=== PATIENT | female | born 1945 | race Caucasian/White ===

== ENCOUNTER → 2017-07-10 09:22 | Outpatient (CLI) | payer MEDICARE, SELFPAY ==
--- NOTE | 2017-07-10 09:28 | XR_ITS ---
XR shoulder RT min 2V HISTORY: ITS.REASON: RT SHOULDER PAIN ORDERING PHYSICIAN: Olivier Lara MD PATIENT AGE: 71 years COMPARISON: None FINDINGS: No fracture or dislocation. No lytic or blastic change. There is normal mineralization. The joint spaces are well-preserved. No significant degenerative/arthritic changes. No erosive changes evident. There is minimal cortical irregularity of the greater tuberosity which may be seen with rotator cuff disease. Otherwise negative. IMPRESSION: Minimal cortical irregularity of the greater tuberosity which may be seen with rotator cuff disease. Otherwise negative
== END ==
PROVIDERS: PCP Family Medicine; Visit Provider Family Medicine
DX: M25.511 Pain in right shoulder (principal)
CPT/HCPCS: 73030

== ENCOUNTER → 2017-07-17 14:15 | Outpatient (CLI) | payer MEDICARE, SELFPAY ==
--- NOTE | 2017-07-17 14:21 | MR_ITS ---
MR shoulder RT wo con HISTORY: Right shoulder pain with limited range of motion ITS.REASON: SUBDELTOID BURSITIS OF RIGHT SHOULDER JOINT ORDERING PHYSICIAN: Olivier Lara MD PATIENT AGE: 71 years COMPARISON: Radiograph of 07/10/2017 TECHNIQUE: Standard multiplanar multiecho sequences are performed without contrast. FINDINGS: There is complete tear of the supraspinatus tendon retraction of the musculotendinous fibers. There is increased T2 signal of the infraspinatus tendon with thickening of the tendon consistent with tendinopathy/tendinosis. Fluid is present in the subacromial region with low-lying acromium/subacromial stenosis and hypertrophic changes of the undersurface of the acromion. There is complete tear of the subscapularis tendon as well with mild retraction of the musculotendinous fibers. Teres minor tendon is intact. Osteoarthritic changes are present at the glenohumeral joint with superior elevation of the humeral head. Subcortical cystic changes are present at the greater tuberosity with increased T2 signal. The bicipital tendon of long head of the biceps is not identified consistent tear of that tendon. No obvious labral tear. No acute fracture. Moderate amount fluid is present in the subscapular region. IMPRESSION: 1. Complete tear of the supraspinatus and subscapularis tendons with retraction of musculotendinous fibers. 2. Tendinopathy/tendinosis of the infraspinatus tendon. 3. Subscapularis subacromial bursitis. 4. Osteoarthritic changes with subcortical cystic changes of the humeral head with subacromial stenosis
== END ==
PROVIDERS: Family Provider Family Medicine; PCP Family Medicine; Visit Provider Family Medicine
DX: M75.51 Bursitis of right shoulder (principal)
CPT/HCPCS: 73221

== ENCOUNTER 2017-09-10 14:00 | Outpatient (RCR) | payer MEDICARE, SELFPAY ==
--- NOTE | 2017-08-04 16:10 | HMH.PTOPEV ---
Rehab Outpatient Evaluation Rehab OP Evaluation Start: 08/04/17 15:52 Freq: Status: Active Protocol: Document 08/04/17 15:52 [facility] (Rec[facility]04[facility]17 16:10 [id number] Electronically Signed By Willa Calderón OT 08/04/17 15:52 Outpatient Therapy Subjective History Subjective History Pt is a 71 year old female who reports to therapy for initial evaluation to right shoulder. Pt reports her shoulder began hurting her ~5 weeks ago. She does not recall a specific injury causing this pain. 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 Pt was able to get approved for an MRI which showed 2 RTC tears in the right shoulder at the supraspinatus and subscapularis. During evaluation pt presents with decreased AROM/Strength and pain at right shoulder. 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 Pt will continue to be seen twice a week to address these deficits. Chief Complaint Pain Stiff Clicks Symptom Type Ache Throb Sharp Dull Symptoms Relieved By Nothing Symptoms Aggravated By Physical Activity Lifting Prior Functional Limitations None Current Functional Limitations Reaching Lifting Housework Dressing Driving Sleeping Recreation Activity Symptom Description Intermittent Activity Dependent Level of pain today (0-10) 3 Pain scale - at its best (0-10) 2 Pain scale - at its worst (0-10) 10 Shoulder/Elbow Eval Shoulder Objective Measurements Palpation Tenderness tenderness shoulder exam standard right tenderness over the
== END 2017-09-10 14:01 | disposition home or self-care (01) ==
LOC: OT 14:00
PROVIDERS: Family Provider Family Medicine; PCP Family Medicine; Visit Provider Orthopaedic Surgery
DX: M25.511 Pain in right shoulder (principal); M75.121 Complete rotator cuff tear or rupture of right shoulder, not specified as traumatic; M19.011 Primary osteoarthritis, right shoulder; G89.29 Other chronic pain
CPT/HCPCS: 97014; 97035; 97110; 97166; G0283

== ENCOUNTER 2017-10-26 14:00 | Outpatient (RCR) | payer MEDICARE, SELFPAY | END 2017-10-26 14:01 | disposition home or self-care (01) | LOC: OT 14:00 | PROVIDERS: Family Provider Family Medicine; PCP Family Medicine; Visit Provider Orthopaedic Surgery | DX: M75.122 Complete rotator cuff tear or rupture of left shoulder, not specified as traumatic (principal) | CPT/HCPCS: 97014; 97035; 97110; 97166; G0283 ==

== ENCOUNTER → 2017-10-30 07:58 | Outpatient (CLI) | payer MEDICARE, SELFPAY ==
--- NOTE | 2017-10-30 08:01 | XR_ITS ---
XR shoulder LT min 2V HISTORY: ITS.REASON: left shoulder pain ORDERING PHYSICIAN: Otf Varner MD PATIENT AGE: 71 years Comparison: None FINDINGS: No fracture or dislocation. No lytic or blastic change. There is normal mineralization. The joint spaces are well-preserved. No significant degenerative/arthritic changes. No erosive changes evident. IMPRESSION: Negative, no acute finding
== END ==
PROVIDERS: PCP Family Medicine; Visit Provider Orthopaedic Surgery
DX: M25.512 Pain in left shoulder (principal)
CPT/HCPCS: 73030

== ENCOUNTER → 2018-01-05 07:44 | Outpatient (CLI) | payer MEDICARE, SELFPAY ==
--- NOTE | 2018-01-05 08:00 | US_ITS ---
US aorta HISTORY: Follow-up of abdominal aortic aneurysm ITS.REASON: AAA COMPARISON: 06/26/2015 FINDINGS: There is mild dilatation of the mid abdominal aorta 2 cm below the xiphoid measuring 2.7 x 2.4 cm similar to the previous exam. The lower abdominal aorta has an unremarkable appearance as do the proximal common iliacs. IMPRESSION: Overall no change mild dilatation of the mid abdominal aorta at 2.7 cm
--- NOTE | 2018-01-05 08:30 | MM_ITS ---
MM Dig screening mamm BI w/CAD CAD Screening COMPARISON: Digital mammograms with CAD 12/31/2016 INDICATION: There is no personal or family history of breast cancer TECHNIQUE: Standard CC and MLO images were obtained. R2 CAD reviewed. FINDINGS: The breasts are composed primarily of fat with scattered fibroglandular densities throughout both breasts. There are few benign-appearing calcination is in each breast. There is no suspicious lesion and no suspicious microcalcifications. There is a tiny benign-appearing nodular density upper outer quadrant right breast. IMPRESSION: Fibrofatty parenchyma no suspicious lesion seen BI-RADS Category: 2 Benign Finding(s) RECOMMENDED FOLLOW-UP: 1YR - 1 YEAR FOLLOW-UP (A letter has been sent to the patient regarding results of the study.)
== END ==
PROVIDERS: Family Provider Family Medicine; PCP Family Medicine; Visit Provider Family Medicine
DX: Z12.31 Encounter for screening mammogram for malignant neoplasm of breast (principal); I71.4 Abdominal aortic aneurysm, without rupture
CPT/HCPCS: 76770; 77067

== ENCOUNTER → 2018-12-27 13:53 | Outpatient (CLI) | payer MEDICARE, SELFPAY ==
--- NOTE | 2018-12-27 13:58 | XR_ITS ---
XR foot wt bearing RT 3V HISTORY: ITS.REASON: pain ORDERING PHYSICIAN: Destiny Rodriguez DPM PATIENT AGE: 73 years COMPARISON: None FINDINGS: Moderate to severe hallux valgus. There is also lateral angulation of the proximal phalanx of the third and second digits. The proximal phalanx of the second digit is subluxed laterally x 7 mm. Osteoarthritic change first and second metatarsal-phalangeal joints. Mild pes planus. Hammertoe deformity of the third digit. No acute fracture or dislocation. There is cortical thickening of the posterior aspect of the distal fibula which may be due to an old fracture. Hypertrophic changes are present at the distal aspect of the first metatarsal. There is some mild flattening of the head of the second metatarsal IMPRESSION: 1. Hallux valgus with osteoarthritis and bunion formation 2. Mild flattening of the head of the second metatarsal with osteoarthritis of the second MTP joint with lateral angulation and subluxation of the proximal phalanx of the second digit 3. Pes planus
--- NOTE | 2018-12-27 13:58 | XR_ITS ---
XR foot wt bearing LT 3V HISTORY: ITS.REASON: pain ORDERING PHYSICIAN: Destiny Rodriguez DPM PATIENT AGE: 73 years COMPARISON: None FINDINGS: There are mild osteoarthritic changes of the first metatarsophalangeal joint. Osteoarthritis is present at the second metatarsophalangeal joint with mild flattening of the head of the second metatarsal. There are also osteoarthritic changes of the navicular cuneiform joint with mild pes planus. 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
== END ==
PROVIDERS: PCP Family Medicine; Visit Provider Podiatrist
DX: M79.672 Pain in left foot (principal); M79.671 Pain in right foot
CPT/HCPCS: 73630

== ENCOUNTER → 2019-01-04 09:05 | Outpatient (CLI) | payer MEDICARE, SELFPAY ==
--- NOTE | 2019-01-04 09:13 | US_ITS ---
APPROVED REPORT Exam Type: Ankle to Brachial Index Wool Dyer: Patricia Ku RT(R) Indications History of Smoking Risk Factors Hypertension Obesity Diabetes Findings RT DANI=1.2 LT DANI=1.1 RT TBI=1.0 LT TBI=0.8 Normal pulses Normal waveforms Conclusion Normal Electronically signed by : Simone Franklin MD 01/06/2019 11:02:17
== END ==
PROVIDERS: PCP Family Medicine; Visit Provider Podiatrist
DX: R09.89 Other specified symptoms and signs involving the circulatory and respiratory systems (principal)
CPT/HCPCS: 93923

== ENCOUNTER → 2019-01-20 08:29 | Outpatient (CLI) | payer MEDICARE, SELFPAY ==
--- NOTE | 2019-01-20 08:38 | MM_ITS ---
PROCEDURE: MM DIG SCREENING MAMM BI W/CAD Patient Age:73Y CLINICAL INDICATION: SCREENING No hormones. No new complaints. Noncontributory family history COMPARISON: [facility] DIG MAMM-SCREEN VLAD W/CAD from 12/31/2016 [facility] MM Dig screening mamm BI w/CAD from 01/05/2018 TECHNIQUE: Standard CC and MLO images were obtained. R2 CAD reviewed. FINDINGS: Mild residual fibroglandular elements bilaterally most evident central and towards upper-outer quadrant. No significant new findings but no dominant mass or suspicious calcifications but stable mild asymmetry. Axillary tail of right breast again noted stable small nodular densities most likely small lymph nodes-unchanged since studies dating back to at least 2017 not of concern. Stable bilateral mammogram with no significant new features Bilateral follow-up 1 year recommended IMPRESSION: Stable bilateral mammogram. No new findings of significant concern Bilateral follow-up 1 year recommended BI-RAD Category: 1 Negative FOLLOW-UP: 1YR 1 Year Follow-up (A letter has been sent to the patient regarding results of the study.) Dictated by: Don Oliva MD 01/21/2019 11:03 Electronically signed by Don Oliva MD in [place] 01/21/2019 11:03
--- NOTE | 2019-01-20 08:38 | XR_ITS ---
PROCEDURE: XR DEXA AXIAL SKELETON CLINICAL HISTORY: OSTEOPENIA COMPARISON: No exams were available for comparison TECHNIQUE: FINDINGS: L1-L4 density is 1.105 grams/centimeter sq with a T-score of -0.6. Left femoral neck density is 0.848 grams/centimeters sq with T-score -1.4 consistent with osteopenia. IMPRESSION: Osteopenia with moderate fracture risk. Treatment advised. Suggest follow-up exam January 2021. Dictated by: Simone Franklin MD 01/20/2019 11:38 Electronically signed by Simone Franklin MD in [place] 01/20/2019 11:38
== END ==
PROVIDERS: PCP Family Medicine; Visit Provider Family Medicine
DX: Z12.31 Encounter for screening mammogram for malignant neoplasm of breast (principal); M85.89 Other specified disorders of bone density and structure, multiple sites
CPT/HCPCS: 77067; 77080

== ENCOUNTER → 2019-02-11 15:05 | Outpatient (CLI) | payer MEDICARE, SELFPAY ==
--- NOTE | 2019-02-11 15:07 | MR_ITS ---
PROCEDURE: MR FOOT RT WO CON CLINICAL INDICATION: pain, surgical planning Evaluate extent of subchondral bone cyst at the 1st, 2nd, and 3rd metatarsal heads for possible autograft for subchondral bone cyst COMPARISON: from 12/27/2018 TECHNIQUE: Routine multiplanar multi echo sequences are performed without gadolinium enhancement. The FINDINGS: There is moderate hallux valgus formation of 42 degrees. There are moderate cystic changes involving the head of the 1st metatarsal as well as subarticular cystic changes at the proximal aspect of the proximal phalanx of the 1st digit. There is lateral subluxation of the proximal phalanx of the 1st digit. There are at least 2 cyst of the head of the 1st metatarsal that measure 7 mm each. There are mild cystic changes involving the head of the 2nd metatarsal with a cyst at the 2nd metatarsal head measuring 5 mm. No significant cystic change at the head of the 3rd metatarsal. There are however cystic changes involving the base of the 2nd metatarsal measuring 10 mm in combination. No obvious cystic change at the base of the 3rd metatarsal however, there is slight diffuse increased T2 signal at the base of the 3rd metatarsal. This could be related to trauma from bone bruise/stress fracture. Infection felt to be less likely. The 4th and 5th metatarsals have an unremarkable appearance. There is lateral angulation of the proximal phalanx of the 2nd and 3rd digits with hammertoe deformity. There is pes planus. No obvious ligamentous abnormality. The posterior tibialis tendon is thinned below the level of the medial malleolar region. There are some scattered areas of increased T2 signal on the talar dome both medially and laterally. The largest area is along the medial aspect of the talar dome with a crescentic area of decreased T1 signal suggesting an area of osteochondrosis. This measures 8 mm in AP dimension with some minimal flattening of the cortex at this area. IMPRESSION: 1. Hallux valgus with osteoarthritic change of the 1st MTP joint. There is also valgus angulation and lateral displacement of the proximal phalanx of the 2nd toe. Subarticular cystic changes are present at the head of the 2nd and 3rd metatarsals and at the base of the 2nd metatarsal and the proximal aspect of the proximal phalanx of the 1st digit. Please see above for detail 2. Bone marrow edema within the base and proximal shaft of the 4th metatarsal which could be secondary to inflammation/trauma/stress fracture 3. Pes planus with thinning of the posterior tibialis tendon suggesting posterior tibialis tendon dysfunction 4. Osteochondritis of the talar dome Dictated by: Simone Franklin MD 02/12/2019 13:17 Electronically signed by Simone Franklin MD in [place] 02/12/2019 13:17
== END ==
PROVIDERS: PCP Family Medicine; Visit Provider Podiatrist
DX: M20.11 Hallux valgus (acquired), right foot (principal); M21.611 Bunion of right foot; M21.6X1 Other acquired deformities of right foot; M21.6X2 Other acquired deformities of left foot; M79.671 Pain in right foot; M79.672 Pain in left foot
CPT/HCPCS: 73718

== ENCOUNTER → 2019-02-15 11:48 | Outpatient (CLI) | payer MEDICARE, SELFPAY ==
--- NOTE | 2019-02-15 11:53 | XR_ITS ---
PROCEDURE: XR CHEST 2V CLINICAL HISTORY: HTN COMPARISON: CXR1 CHEST-PORTABLE from 04/28/[address] CHEST W/ CONTRAST from 06/26/2015 FINDINGS: Cardiac silhouette, hilar areas and pulmonary vessels are normal. There is soft tissue and air rounded density projected over the cardiac silhouette and posterior in the mediastinum on the lateral view consistent with a prominent gastric hernia. There are some hazy thin linear strands of increased density at the left lung base. The remainder of the lung nuno are clear. No acute bony abnormalities. IMPRESSION: Prominent gastric hernia. Left lung base linear atelectasis or scarring. Dictated by: Ayad Espinoza 02/15/2019 12:08 Electronically signed by Ayad Espinoza in [place] 02/15/2019 12:08
[2019-02-15 12:38] LABS: Basophils % 0.9 % (0.1-2.0); Eosinophils % 0.9 % (0.1-12.0); Hematocrit 45.7 % (37.0-47.0); Hemoglobin 14.6 g/dL (12.2-16.2); Lymphocytes # 1.1 K/mm3 (0.7-4.5); Lymphocytes % 24.2 % (10-50); Mean Corpuscular HGB Conc 31.9 g/dL (31.8-35.4); Mean Corpuscular Hemoglobin 28.7 pg (27.0-31.2); Mean Platelet Volume 7.1 fl (7.4-10.4); Monocytes # 0.3 K/mm3 (0.1-1.0); Monocytes % 7.3 % (1.7-9.3); Neutrophils # 3.1 K/mm3 (1.8-7.8); Neutrophils % 66.6 % (37.0-80.0); Platelet Count 217 K/mm3 (142-424); Red Blood Count 5.07 M/mm3 (4.20-5.40); White Blood Count 4.6 K/mm3 (4.8-10.8)
--- NOTE | 2019-02-15 12:40 | ECG_ITS ---
APPROVED REPORT Exam: Resting ECG HR:74 bpm ECG Measurements Heart Rate 74 AXES NH 190 P 33 QRSd 96 QRS 27 QT 392 T 8 QTc 435 <Conclusion> Normal sinus rhythm Normal ECG Electronically signed by : Jamie Marques, 02/15/2019 20:03:39
[2019-02-15 14:41] LABS: Hemoglobin A1C 6.4 % (0.0-7.0)
[2019-02-15 15:52] LABS: Alanine Aminotransferase 27 U/L (12-78); Albumin Level 3.8 gm/dL (3.4-5.0); Albumin/Globulin Ratio 1.2 (1.1-1.8); Alkaline Phosphatase 67 U/L (46-116); Anion Gap 14.2 mEq/L (5-15); Aspartate Amino Transferase 24 U/L (15-37); Bilirubin,Total 0.5 mg/dL (0.2-1.0); Blood Urea Nitrogen 18 mg/dL (7-18); Calcium 9.8 mg/dL (8.5-10.1); Carbon Dioxide 28 mmol/L (21.0-32.0); Chloride 102 mmol/L (98-107); Creatinine,Serum 0.77 mg/dL (0.55-1.02); Estimated Glomerular Filt Rate 74 ml/min (>60); GFR (African American) 89 ML/MIN (>60); Globulin 3.2 gm/dl (1.3-3.2); Glucose 99 mg/dL (74-106); Potassium 4.2 mmoL/L (3.5-5.1); Sodium 140 mmol/L (136-145)
[2019-02-16 16:46] LABS: Vitamin D 25 Hydroxy 26.3 ng/mL (30.0-100.0)
== END ==
PROVIDERS: PCP Family Medicine; Visit Provider Podiatrist
DX: Z01.818 Encounter for other preprocedural examination (principal); E11.9 Type 2 diabetes mellitus without complications; Z79.84 Long term (current) use of oral hypoglycemic drugs; E55.9 Vitamin D deficiency, unspecified
CPT/HCPCS: 36415; 71046; 80053; 82652; 83036; 85025; 93005

== ENCOUNTER 2019-02-23 06:04 | Observation (INO) ==
--- NOTE | 2019-02-23 07:07 | Progress Note ---
[facility] Anesthesia Checklist - Patient Identification Patient Identification: Arm Band, Verbal (Name & ) - Structural Data Admitted From: Home Planned Operative Procedure/s: hammer toe Consent for Planned Operative Procedure(s) Verified: Yes Verified Documents: History and Physical - NPO Status Verified Time NPO: 00:00 - Chart Verification Results Verified: CBC, BMP - Additional verifications Patient : No Anesthesia Reactions: No Hx Blood Transfusions: Yes (COUPLE YEARS AGO, PT RECEIVED 4 UNITS) Blood Transfusion Reaction: No Cephalosporin Allergy: No Previous Colonoscopy: Yes - Cardiovascular Assessment Heart Sounds: S1 & S2 Pulse Strength: Baseline Pulse Rhythm: Regular Peripheral Edema: No - Airway Assessment C-Spine Mobility Assessed: Yes TMJ Mobility Assessed: Yes Dentition: Good Dentition - Neurological Assessment Level of Consciousness: Awake, Alert, Appropriate Hx Seizures: No Numbness or tingling in extremities: No - Anesthesia Plan Anesthesia Risk discussed: Yes Anesthesia Plan: Verified ASA Class: III Anesthesia Type: General [facility] History I have reviewed the patient's past medical history: Yes Medical History: Reports:: Aneurysm, Diabetes Mellitus Type 2, Gastroesophageal Reflux Disease(GERD), Hiatal Hernia, Hyperlipidemia, Hypertension Denies:: Cancer, Diabetes Mellitus Type 1, Internal Pacemaker, MRSA, Seizures *Have you ever received a pneumonia vaccine?: Yes *Have you received a flu vaccine this season?: Yes Other Medical History: Reports: Arthritis, Other. Denies: Blood Transfusion Reaction Anesthesia experience/problems:: none Laterality Cases: Bilateral: Tonsillectomy Other Surgeries: Yes: Appendectomy, Cholecystectomy, Tubal Ligation, Other. No: Pacemaker Amputation: No Fractures: No - *Social History Educational Level: Completed High School Smoking Status: Never smoker Alcohol Intake: never Substance Use Type: other *Occupational Status:: employed Housing: house *Travel in the last 8 weeks: None Family Hx:: No significant family history
--- NOTE | 2019-02-23 13:44 | Progress Note ---
[facility] Anesthesia Record Part I Intake, IV Amount: 1,650 Estimated blood loss (mL): 10 Urine output (mL): 500 Blood Products used (#): none Blood Pressure: 140/66 SaO2: 97 Pulse Rate: 84 Respiratory Rate: 22 Temperature: 97.0 F Patient is:: Drowsy, Nasal O2, Stable Stable to PACU at:: 13:35
--- NOTE | 2019-02-23 13:45 | Progress Note ---
[facility] Anesthesia Record Part II Discharge Time: 14:05 Destination: Surgical Day Care (OP Surgery) PACU nurse assessment reviewed?: Yes Patient Condition:: Good Anesthesia Complications:: None Swallowing reflex intact?: Yes Cyanosis?: No
--- NOTE | 2019-02-23 15:06 | H&P/Discharge Summary ---
General - General Admission date:: 02/23/19 Discharge date: 02/24/19 *Admission Date: 02/23/19 *Chief complaint: Right foot pain, OA *History of present illness: Mrs. Sotelo is a 73-year-old diabetic female who presents for observation admission after surgical flatfoot reconstruction. Patient had preop medical clearance by Dr. Lara. She will need incentive spirometer postop. She had surgery to her left hammertoes 8 years ago with no complication. Patient was counseled extensively on the increased risk of her being a diabetic with foot and distal toe surgery. [facility] History I have reviewed the patient's past medical history: Yes Medical History: Reports:: Aneurysm, Diabetes Mellitus Type 2, Gastroesophageal Reflux Disease(GERD), Hiatal Hernia, Hyperlipidemia, Hypertension Denies:: Cancer, Diabetes Mellitus Type 1, Internal Pacemaker, MRSA, Seizures *Have you ever received a pneumonia vaccine?: Yes *Have you received a flu vaccine this season?: Yes Other Medical History: Reports: Arthritis, Other. Denies: Blood Transfusion Reaction Anesthesia experience/problems:: none Laterality Cases: Bilateral: Tonsillectomy Other Surgeries: Yes: Appendectomy, Cholecystectomy, Tubal Ligation, Other. No: Pacemaker Amputation: No Fractures: No - *Social History Educational Level: Completed High School Smoking Status: Never smoker Alcohol Intake: never Substance Use Type: other *Occupational Status:: employed Housing: house *Travel in the last 8 weeks: None Family Hx:: No significant family history Review of Systems - Review of Systems Review of systems:: pertinent systems reviewed and negative unless documented below - Constitutional Denies body ache(s), Denies chills - Eyes Denies blurry vision - ENT Denies abnormal hearing, Denies dizziness - *Cardiovascular Denies chest pain, Denies shortness of breath - *Respiratory Denies shortness of breath - *Gastrointestinal Denies abdominal pain - *Genitourinary Denies difficulty urinating - *Musculoskeletal Denies numbness, Denies tingling - Integumentary/Breasts Denies hair loss - *Neurologic Denies confusion, Denies tingling/numbness/burning sensations - Psychiatric Denies anxiety - Hematologic/Lymphatic Denies easy bleeding, Denies easy bruising - Allergic/Immunologic Denies wheezing Exam Vital signs and Labs for Last 24 Hours: Temp Pulse Resp BP Pulse Ox 97.5 F L 71 16 139/64 95 02/23/19 14:25 02/23/19 14:25 02/23/19 14:25 02/23/19 14:25 02/23/19 14:25 Laboratory Results - last 24 hr 02/23/19 06:39: POC Glucose 135 H 02/23/19 07:55: Urine Color Yellow, Urine Appearance Clear, Urine pH 5.0, Ur Specific Rawson 1.025, Urine Protein Negative, Urine Glucose (UA) Negative, Urine Ketones Negative, Urine Blood Negative, Urine Nitrate Negative, Urine Bilirubin Negative, Urine Urobilinogen 0.2, Ur Leukocyte Esterase Negative I & O for Last 24 hours: Intake & Output 02/21/19 02/22/19 02/23/19 02/24/19 11:59 11:59 11:59 11:59 Intake Total 1650 / 1650 Balance 1650 / 1650 Weight 246 lb - *Routine HEENT Exam Head: Present: normocephalic Eye: Present: PERRL - *Routine Neck Exam Present: supple - Routine Chest/Breast/Axilla Exam Chest wall: Absent: tenderness - *Routine Respiratory Exam Present: accessory muscle use - *Routine Cardiovascular Exam Present: RRR - *Routine Abdominal Exam Present: soft - *Routine Rectal Exam Patient deferred: visual exam - *Routine Exam Patient deferred: external exam - *Routine Extremities Exam Present: edema, pulses intact, normal capillary refill. Absent: calf tenderness - *Routine Skin Exam Present: intact, dry - *Routine Neurological Exam Present: alert, oriented X3, moving all extremities - Detailed Lower Extremity Exam Comments: Right lower extremity posterior plaster splint clean dry and intact. Leg elevated on pillow. Cryo/Cuff currently applied. Pulses intact, capillary fill time within normal limits. K wires intact to right 2-3rd toes. Motor function and light touch sensation decreased secondary to regional nerve block. No calf or thigh pain noted bilaterally. SCD intact to the right lower extremity. Hospital Course Hospital Course: Patient underwent surgery 02/23/2019. Hospital course has been relatively uneventful. She denies any feelings of nausea, vomiting, fever, chills, shortness of breath or chest pain. She will have physical therapy this morning and be discharged home today. Results Labs on day of discharge: Labs from last 24 hours 02/23/19 02/23/19 07:55 06:39 POC Glucose 135 H Urine Color Yellow Urine Appearance Clear Urine pH 5.0 Ur Specific Rawson 1.025 Urine Protein Negative Urine Glucose (UA) Negative Urine Ketones Negative Urine Blood Negative Urine Nitrate Negative Urine Bilirubin Negative Urine Urobilinogen 0.2 Ur Leukocyte Esterase Negative - Additional Comments Postop x-rays taken 02/23/2019 evaluated by myself. Hardware intact to the right foot with reduction of deformity. DS: Diagnosis - Discharge Diagnosis (1) Pes planus of right foot Status: Resolved (2) Equinus deformity of right foot Status: Resolved (3) Acquired hammer toe of right foot Status: Chronic (4) Bunion of great toe of right foot Status: Resolved (5) Hypertension Status: Acute (6) Hypothyroidism Status: Acute (7) Obstructive sleep apnea Status: Acute (8) Type 2 diabetes mellitus Status: Acute Discharge Plan - Patient Discharge Instructions Additional Instructions: Patient is to maintain dressing clean dry and intact. Ice (polar pack) behind the right knee and elevate on two pillows. Non weight bearing to the right lower extremity with DME assistance (walker, rolling knee scooter). Continue incentive spirometer q1h. Rx for Percocet 5/325. e-Rx given for Xarelto, Zofran and Motrin 800mg. Follow up in one week as scheduled Patient Instructions: Type 2 Diabetes, DI for Bunion Removal, DI for Hammer Toe Correction, DI for Surgical Site Infection - Follow up Plan Follow up with: Destiny Rodriguez DPM [Staff Physician] - Olivier Lara MD [Primary Care Provider] - Disposition: Home, Self-Long Term Medications: Home Medications Medication Instructions Recorded Confirmed Type levothyroxine 100 mcg capsule 100 mcg PO ONCE 07/30/17 02/23/19 History lisinopril 20 mg tablet 20 mg PO ONCE 07/30/17 02/23/19 History metformin 500 mg tablet 500 mg PO DAILY 07/30/17 02/23/19 History pantoprazole 40 mg tablet,delayed 40 mg PO QAM 07/30/17 02/23/19 History release simvastatin 40 mg tablet 40 mg PO DAILY tab 12/27/18 02/23/19 History ibuprofen 600 mg tablet 600 mg PO TID PRN 30 Days #90 tab 02/15/19 02/23/19 Rx ondansetron 4 mg disintegrating 4 mg PO Q6H #30 tab 02/15/19 02/23/19 Rx tablet rivaroxaban 10 mg tablet 10 mg PO ONCE #30 tab 02/17/19 02/23/19 Rx Ergocalciferol (Vitamin D2) 50,000 unit PO QWEEK 02/23/19 02/23/19 History [Drisdol] Oxycodone HCl/Acetaminophen 1 each PO Q4HP PRN #30 tab 02/24/19 Rx [Percocet 7.5/325mg tablet] Prescriptions/Medication Reconciliation: New Oxycodone HCl/Acetaminophen [Percocet 7.5/325mg tablet] 1 each PO Q4HP PRN #30 tab PRN Reason: Moderate Pain Continued levothyroxine 100 mcg capsule 100 mcg PO ONCE lisinopril 20 mg tablet 20 mg PO ONCE metformin 500 mg tablet 500 mg PO DAILY ibuprofen 600 mg tablet 600 mg PO TID PRN 30 Days #90 tab PRN Reason: pain pantoprazole 40 mg tablet,delayed release 40 mg PO QAM simvastatin 40 mg tablet 40 mg PO DAILY tab ondansetron 4 mg disintegrating tablet 4 mg PO Q6H #30 tab rivaroxaban 10 mg tablet 10 mg PO ONCE #30 tab Ergocalciferol (Vitamin D2) [Drisdol] 50,000 unit PO QWEEK Discontinued enoxaparin 40 mg/0.4 mL subcutaneous syringe 40 mg SQ QDAY 42 Days #16.8 ml - Problem Reconciliation Problems Reviewed?: Yes
--- NOTE | 2019-02-23 15:08 | Operative Note ---
Date of procedure: 02/24/19 Pre-op Diagnosis:: 1. Right PTTD 2. Right HAV with bunion 3. Right foot osteoarthritis 4. Right foot posterior tibial tendon tear 5. Right 2nd met head bone cyst 6. Right hammertoes 2-3 7. Right gastroc equinus deformity 8. Right pes planus 9. Subchondral bone cyst 10. Right foot synovitis 11. Osteochondral defect of talus 12. Small vessel arterial disease due to type 2 diabetes mellitus 13. Controlled type 2 diabetes mellitus without complication, without long-term current use of insulin 140. Morbid obesity with body mass index (BMI) of 40.0 to 49.9 Post-op Diagnosis:: Same Procedure performed:: 1. Right 1st MPJ arthrodesis 2. Right tarsometatarsal arthrodesis 13 3. Right 2nd metatarsal cheilectomy with implant arthroplasty 4. Right debridement, curettage, excision of subchondral cyst with bone grafting 5. Right posterior tibial tendon debridement and repair 6. Right hammertoe repair (PIPJ AD) 2-3 7. Right 2nd - 3rd MPJ release, tendocapsular balancing 8. Right foot synovectomy 9. Right gastrocnemius recession 10. Right first MPJ medial capsulorrhaphy 11. Right application of amniotic tissue graft 12. Right Robin osteotomy 13. Right foot excision of cyst 14. Right foot autograft harvest Surgeon:: Destiny Rodriguez DPM COMPARATOR OPERATOR:: Jamie Marie Anesthesia: GETA, regional (R popliteal block) Estimated blood loss (mL): 40 Clinical Note:: Bilateral hallux valgus, hammertoes, OA, PTTD: X-rays 3 views bilateral feet taken 12/27/18. IMPRESSION: Osteoarthritis first and second MTP with mild flattening of the head of the second metatarsal with possible avascular necrosis of the head of the second metatarsal and mild pes planus with osteoarthritis of the midfoot. MRI right foot, 02/11/19: IMPRESSION: 1. Hallux valgus with osteoarthritic change of the 1st MTP joint. There is also valgus angulation and lateral displacement of the proximal phalanx of the 2nd toe. Subarticular cystic changes are present at the head of the 2nd and 3rd metatarsals and at the base of the 2nd metatarsal and the proximal aspect of the proximal phalanx of the 1st digit. Please see above for detail. 2. Bone marrow edema within the base and proximal shaft of the 4th metatarsal which could be secondary to inflammation/trauma/stress fracture. 3. Pes planus with thinning of the posterior tibialis tendon suggesting posterior tibialis tendon dysfunction. 4. Osteochondritis of the talar dome. DEXA scan, 01/20/19: IMPRESSION: Osteopenia with moderate fracture risk. Treatment advised. Suggest follow-up exam January 2021. We discussed xrays, MRI and DEXA scan. We discussed conservative versus surgical treatment options. Conservative treatment options include change shoe wear, prefab or custom molded inserts, strapping, taping and padding. She has failed that and NSAIDs, ice and elevate for pain and swelling. I explained my concern over the first and the second metatarsal heads and how it looks arthritic. I explained about bone density and increased fracture risk. I explained the fixation options may change. We discussed implantation for toes first K wires. Patient would prefer internal hardware only. I explained the depends and the quality of the bone. We did discuss in detail the talus OCD noted on the MRI. Patient is not having symptoms at this time. She declined an arthroscopy. I explained we can address the ankle if she has issues in the future. The patient has elected to proceed with surgery because they have failed conservative treatment and continue to have pain and worsening symptoms affecting daily activities. We discussed in detail the risks of diabetes including increased infection risk and delayed healing of the soft tissue and bone. We also discussed increased risk of gangrene and risk of digital amputation if complications arise. We also discussed in detail DVT/PE. She is at increased risk due to length of case, immobilization, morbid obesity. Recommend blood thinners x 6 weeks. The patient has been instructed on the planned procedure, all risk versus benefits of the procedure to include bleeding, infection, nerve and blood vessel damage, need for further surgery, delay in healing of soft t issue or bone, failure of bones to heal, non-union, mal-union, prolonged pain and recovery, prolonged swelling, CRPS/RSD, DVT, possible loss of toe, digit, foot, Charcot deformity, and anesthetic complications. No guarantees were given. All questions fully answered. The patient verbalized understanding and agreed to proceed with surgery. Written consent was obtained. Medical clearance per PCP. Apt with Dr. Lara next week. Necessary labs and pre-op testing ordered: CBC, CMP, EKG, CXR, Ha1c, vitamin D. We discussed risks of diabetes and its effect on wound and bone healing. We also discussed DVT/PE and her risk factors of immobilization, surgery length and history of aortic aneurysm. E-Rx for Zofran 4mg, Motrin 800mg # 60, Lovenox, vitamin D. Will need Rx pain. Patient gets lightheaded and "feels funny" with Lortab. She has taken Tylenol with codeine and Percocet in the past without problems. Patient will need wheelchair. Plan to keep overnight for 23-hour observation for pain con trol and physical therapy postop day #1 for transitions. Operative findings:: Right pes planus flatfoot deformity noted. Degenerative changes noted throughout the foot. First and second metatarsal head was extremely cystic with cyst and defect noted. Tear in the posterior tibial tendon at the insertion on the navicular. Synovitis noted in the posterior tibial tendon sheath. Arthritic changes noted throughout the tarsometatarsal joints. Large bunion deformity with osteoporotic bone throughout the foot. Operative note:: On this date and time, the patient was deemed an appropriate surgical candidate. With informed consent signed, the patient was taken to the operating theater. The patient was positioned supine. General anesthesia was induced. Tourniquet was applied to the RIGHT mid calf. The RIGHT lower extremity was prepped and draped in normal sterile fashion. RIGHT GASTROCNEMIUS RECESSION: Attention was directed to the posterior leg medially a linear incision was mapped out. Dissection was carried through the skin to subcutaneous tissue with care taken to maintain surgical hemostasis and safely retract neurovascular stru ctures. Patient was then carried down bluntly through the subcutaneous tissue to the peritenon overlying the gastrocnemius muscle. Due to the patient's body habitus there was more normal subcutaneous tissue. The peritenon was transected and preserved for later closure. The gastroc was identified and utilizing a 15 blade a René transverse incision was made while the foot was being dorsiflexe d and the tendon was released. Good reduction of the equinus deformity was noted. It was flushed Spots normal sterile saline. 3-0 Vicryl was used to reapproximate the peritenon overlying the tendon in a running fashion. The soft tissue was then closed in a layered fashion and a 4-0 Monocryl was used to close subcutaneous as well as subcuticular tissue and a running fashion. RIGHT 1ST MPJ ARTHRODESIS: The tourniquet was inflated at 225 mmHg. Attention was directed to the medial column where an incision was mapped out from the first MPJ extending along the PT tendon just inferior to the medial malleolus. Dissection was carried down in a layered fashion exposing the first MPJ, tarsometatarsal joint. The first metatarsal head was intact with cartilage wearing medially. Large dorsal medial eminence was resected and the majority of the cartilage wear was resected. Large IM angle noted. The first metatarsal cuneiform joint was resected with a saw and technique removing cartilage and subchondral bone plate. Of which was taken off the cuneiform to reduce the deformity. Initially the plan was to do a Lapidus bunionectomy but due to the cystic in nature and damage of the first m etatarsal head it was converted to a first MPJ fusion. Cartilage removed from the base of possible phalanx and head of the middle phalanx. Joints prepped down to the level of bleeding bone. RIGHT FOOT EXCISION OF CYST: There is a large cyst noted at the metatarsal head. It was debrided. Specimen was sent to pathology. RIGHT EXCISION/CURRETTAGE BONE CYST OF METATARSAL: The 1st MPJ was visualized and there was degenerative changes and spurring noted on the metatarsal head. Utilizing a rongour and curette the dorsal spurring was removed from the metatarsal. The quality of the bone appeared really osteoporotic and poor so decision was made to not proceed with a Lapidus bunionectomy. Decision was made to proceed with fusion because of the cyst and bone defect. Prodense was inserted to fill some of the void. RIGHT ROBIN OSTEOTOMY: Still some lean and deformity at the HIPJ. [place] osteotomy performed and fixation was done through the first MPJ fusion plate. The first MPJ was reduced in standard technique, confirmed by intraoperative fluoroscopy. Anatomic plate utilized with locking screws. Reduction and position of fixation confirmed under intraoperative fluoroscopy and deemed to be okay. Wound flushed with copious amounts normal sterile saline. RIGHT 1ST MPJ MEDIAL CAPSULORRHAPHY: Utilizing a 15 blade a piece of the medial capsular tissue was debrided. The deep tissue was reapproximated with 3-0 Vicryl in a running fashion. The capsular tissue was reapproximated as well pulling the joint slightly medial. Toe position was improved. RIGHT FOOT AUTOGRAFT HARVEST: A piece of the cuneiform was taken in a wedge as above. This was saved and used later as autograft to pack the tarsometatarsal arthrodesis fusion sites as well as fill-in the subchondral cyst. RIGHT TARSOMETATARSAL ARTHRODESIS 1-3: The bunion and intercuneiform instability was reduced. Temp fixation inserted. Intraoperative fluoroscopy utilized. Adequate reduction noted. A right medical plate was then inserted in standard technique distally, lag screw inserted and 2 proximal locking screws were inserted. There was some instability at the intercuneiform level when the reduction clamp was removed. It was re-reduced and a 4.0 mm cannulated partially threaded screw was inserted from the first to the second metatarsal base as well as across the cuneiforms once they had been reduced as below. Attention was then directed dorsally where a separate incision was mapped out between the second and third tarsometatarsal joints. Dissection was carried down layered fashion to the bone. Arthritic changes noted within the joint and dorsal spurring noted. Spurs were resected. Joint was prepared good healthy bleeding bone exposed. Several millimeters were taken off the base of the second metatarsal in order to shorten the second ray. Joints were reduced and a dual plate was inserted over the second as well as third tarsometatarsal joints in standard technique. Intraoperative fluoroscopy utilized good compression noted. Fixation stable. RIGHT HAMMERTOE REPAIR, 2-3RD PIPJ AD: Attention was directed to the second and third digits were linear incision was mapped out over the PIPJ. Dissection was carried down to the joint transverse tenotomy was performed exposing the PIPJ. The head of the proximal phalanx was transected as well as the base of the middle phalanx. 0.062 smooth K wires were inserted with compression across the joint. RIGHT 2ND-3RD MPJ RELEASE: An incision was then extended from the second PIPJ over the second MPJ toward the metatarsal. Transverse tenotomy performed at the level of the MPJ releasing the soft tissue contracture. Release performed to both MPJs through this incision. RIGHT 2ND METATARSAL CHEILECTOMY W/ IMPLANT: Attention was directed back to the 2nd MPJ where dorsal spurring had been resected. Soft tissue had been released from the metatarsal head. There was still some restriction of range of motion. McClamary elevator was used and passed underneath the joint inferiorly which did release plantar adhesions. There was an improvement in the 2nd MPJ range of motion noted. Intraoperative fluoroscopy was utilized. In accordance with electro mechanical engineer guidelines and standard technique a guidewire was placed into the metatarsal head centrally. AP and lateral were checked for positioning of the guidewire centrally. Next a reamer was inserted over the guidewire. The remaining cartilage on the metatarsal head was reamed. The wound was flushed with copious amounts of normal sterile saline. At this point a lisbeth-metatarsal, 2nd MPJ implant was inserted into the met head. Range of motion was tested and noted to be improved. There was no jamming of the joint noted. RIGHT FOOT SYNOVECTOMY: Attention was directed to the Medial foot where an incision was mapped out just distal to the navicular extending proximal past the medial malleolus along the course of the PT tendon. Dissection was carried through the skin through subcutaneous tissue with care taken to maintain surgical hemostasis and safely retract neurovascular structures. Vessels were hand tied or bovied with electrocautery as necessary. Dissection was then carried through deep fascia, into the posterior tibial tendon sheath. There was pink and red synovitic tissue noted surrounding the tendon sheath. Dissection was then carried down through the sheath overlying the PT tendon and immediately synovitic fluid was noted. Synovitis and fluid was cleaned up and the synovitis was debrided from around the tendon. The incision was flushed with copious amounts of sterile saline. RIGHT POSTERIOR TIBIAL TENDON DEBRIDEMENT AND REPAIR: Attention was directed to the posterior tibial tendon (PTT), where a longitudinal tear was noted extending from insertion to medial mall. The PTT tear did extend into the navicular insertion. Utilizing sharp dissection technique the stringy fibers were divided from the posterior tibial tendon. A longitudinal tear was noted that measured around 1 cm long. A 15 blade was used to remove a portion of the tear. This piece of the tendon was sent as a specimen. Next the wound was flushed with copious amounts of normal sterile saline. The edge of the tendon were also debrided and cleaned up to smooth edges. 4-0 Prolene was then used to repair the tendon in a running fashion. The incision was flushed with copious amounts of sterile saline. 2-0 Vicryl was used to close deep tissue in a running fashion. 3-0 Vicryl was used to close subq layer in a running fashion. Half of the amniotic graft was wrapped around the P T tendon. The skin was then closed with 3-0 nylon in interrupted fashion. RIGHT APPLICATION OF AMNIOTIC TISSUE: Half of an amnio graft was cut and laid over the 2nd MPJ directly so the implant would not adhere to the deep tissue. Deep tissues were approximated with 3-0 Vicryl in interrupted fashion. 3-0 Vicryl was used to reapproximate the subcutaneous tissue. Skin was closed in an interrupted mattress fashion with 3-0 nylon. ViaFlow was inserted into the incision. The tourniquet was deflated after 235 mins and immediate hyperemic response was noted to the digits. The wounds were cleansed. Mastisol and Steri-Strips were applied to the posterior incision site. Xerofoam, dry sterile dressing was then applied followed by a below knee posterior splint. The patient was awoken from anesthesia and transferred to recovery with vital signs stable and neurovascular status intact. Materials: [email or web address] Lapidus plate [email or web address] 3.5 mm locking screws x 4 [email or web address] 1st MPJ fusion plate [employer] 2.8mm locking screws x 4 [employer] 4.0mm partially-threaded cannulated screw x2 [email or web address] claw plate x 2, 2.8mm locking screws x 4 2nd MPJ (lisbeth) implant 0.062 smooth K wires x 2 [employer] Viaflow x 1 Amnio (amniotic membrane) graft x 1 Prodense Discharge/Plan: Admit for 23 hour observation Patient is to maintain posterior splint clean dry and intact. Ice/polar pack behind the right knee and elevate on foam ramp or two pillows. Non weight bearing to the right lower extremity with crutches. Patient plans to rent a [employer] scooter. Take Rx as previously directed. Rx given Zofran 4mg, Motrin 800mg. Obtain post op films, right foot 3 views. Tourniquet time (min): 234 Condition: stable Disposition: observation Specimens:: Right posterior tibial tendon Right 1st MPJ cyst Complications:: None
--- NOTE | 2019-02-23 15:48 | Pharmacy Consult Notes ---
[facility] Pharmacy VTE Monitoring - Patient Demographics Admission date: 02/23/19 Report Date: 02/23/19 Time: 15:48 Allergies/Adverse Reactions: Patient Allergies hydrocodone [From Lortab] Allergy (Mild, Verified 02/23/19 06:27) LIGHTHEADED Height: 1.65 m Weight: 111.584 kg - VTE Risk Was VTE Risk Assessment Performed: Yes VTE Score: 3 VTE Risk Level: Low Risk - Prophylaxis VTE Prophylaxis Ordered?: Yes Types of VTE Prophylaxis: TEDS Knee High, IPCS Thigh High, Pharmacological Pharmacologic Type: Other (XARELTO) - VTE Diagnosis Confirmed Treatment or plan recommended: Continue Current Treatment
--- NOTE | 2019-02-23 19:14 | Progress Note ---
Internal Medicine - PN: Subj *Date: 02/23/19 *Time: 19:03 Interval history: FAMILY MEDICINE CONSULT Ms. Stern is a 73-year-old white female patient of Dr. Javad Lara. On this day she underwent repair of a bunion and hammertoe repair of the right foot by Dr. Abbey Rodriguez. The bunion was of the right great toe and there were hammertoe deformities of the second and third toes of the right foot. For details of the surgery see Dr. Peace's operative report. Ms. Stern has type 2 diabetes mellitus (Rx, Metformin 500mg daily). She has hypothyroidism (Rx, Levothyroxine 100mcg)and has had Grave's disease in the past. She has hypertension and takes hydrochlorothiazide/lisinopril 12.5 mg/20 mg once a day. Protonix 40 mg a day.. She takes simvastatin 40 mg at bedtime to treat hyperlipidemia. Additional Hx: Hiatal hernia. Abdominal aortic aneurysm. Pulmonary nodule stable by serial CTs. History of iron deficiency. Diverticulosis. History of peptic ulcer disease. Obstructive sleep apnea. Right rotator cuff tear. Surgical Hx: Hammertoe repair on the left. Vocal cord surgery in 1981. Tubal ligation 1973. Appendectomy 1967. Past history of tonsillectomy. Cholecystectomy in 2008. Bilateral cataract surgery in 2014. EGD 2015. Colonoscopy 2015. GI bleed 2013. Social Hx: Does not smoke no alcohol use. Allergies: No specific allergies. NSAIDs are avoided due to the history of peptic ulcer disease. Exam Vital signs and Labs for Last 24 Hours: Temp Pulse Resp BP Pulse Ox 98.0 F 99 H 20 106/55 L 92 L 02/23/19 17:00 02/23/19 18:30 02/23/19 18:30 02/23/19 18:30 02/23/19 18:30 Laboratory Results - last 24 hr 02/23/19 06:39: POC Glucose 135 H 02/23/19 07:55: Urine Color Yellow, Urine Appearance Clear, Urine pH 5.0, Ur Specific [place] 1.025, Urine Protein Negative, Urine Glucose (UA) Negative, Urine Ketones Negative, Urine Blood Negative, Urine Nitrate Negative, Urine Bilirubin Negative, Urine Urobilinogen 0.2, Ur Leukocyte Esterase Negative, Urine RBC 3-5, Urine WBC 3-5, Ur Squamous Epith Cells 3-5 I & O for Last 24 hours: Intake & Output 02/21/19 02/22/19 02/23/19 02/24/19 11:59 11:59 11:59 11:59 Intake Total 1889 Balance 1889 Weight 246 lb 263 lb 7 oz - Constitutional no acute distress (Comfortable sitting up in bed, postop.) - *Routine HEENT Exam Head: Present: normocephalic Eye: Present: PERRL ENT: Present: mucous membranes moist - *Routine Neck Exam Present: full ROM - Routine Chest/Breast/Axilla Exam Chest wall: Absent: tenderness - *Routine Respiratory Exam Present: CTA bilaterally - *Routine Cardiovascular Exam Present: RRR (Heart sounds are distant.) - *Routine Abdominal Exam Present: soft, obese. Absent: tenderness - *Routine Extremities Exam Present: edema (1+ edema on the left leg.) Comments: The right foot and ankle are enclosed in a cast and dressing. - *Routine Skin Exam Present: intact - *Routine Neurological Exam Present: alert, oriented X3 Assessment and Plan (1) Bunion of great toe of right foot Current visit: Yes Status: Acute Category: Medical Code(s): M21.611 - Bunion of right foot (2) Acquired hammer toe of right foot Current visit: Yes Status: Acute Category: Medical Code(s): M20.41 - Other hammer toe(s) (acquired), right foot (3) Hypertension Current visit: Yes Status: Acute Category: Medical Code(s): I10 - Essential (primary) hypertension (4) Type 2 diabetes mellitus Current visit: Yes Status: Acute Category: Medical Code(s): E11.9 - Type 2 diabetes mellitus without complications (5) Hypothyroidism Current visit: Yes Status: Acute Category: Medical Code(s): E03.9 - Hypothyroidism, unspecified (6) Obstructive sleep apnea Current visit: Yes Status: Acute Category: Medical Code(s): G47.33 - Obstructive sleep apnea (adult) (pediatric) - Assessment and plan all Dx Assessment and Plan for all problems:: Medications will be ordered appropriately. Lab work has been ordered. TSH was included. I believe she had a recent glycohemoglobin in the office of A and we will check on this. Thank you for the consult I will follow the patient with you.
[2019-02-23 19:26] LABS: Anion Gap 9.8 mEq/L (5-15); Bilirubin,Total 0.4 mg/dL (0.2-1.0); Calcium 8.5 mg/dL (8.5-10.1); Globulin 3.1 gm/dl (1.3-3.2); Total Protein,Serum 6.1 gm/dL (6.4-8.2)
[2019-02-23 19:48] LABS: Basophils % 0.3 % (0.1-2.0); Hematocrit 43.6 % (37.0-47.0); Hemoglobin 13.4 g/dL (12.2-16.2); Lymphocytes % 10.6 % (10-50); Mean Corpuscular HGB Conc 30.9 g/dL (31.8-35.4); Mean Corpuscular Volume 91.6 fl (81-99); Mean Platelet Volume 7.5 fl (7.4-10.4); Monocytes # 0.5 K/mm3 (0.1-1.0); Neutrophils % 84.2 % (37.0-80.0); Platelet Count 226 K/mm3 (142-424); Red Blood Count 4.76 M/mm3 (4.20-5.40); Red Cell Distribution Width 15.1 % (11.5-17.5); White Blood Count 9.6 K/mm3 (4.8-10.8)
[2019-02-24 07:47] LABS: Basophils % 0.4 % (0.1-2.0); Eosinophils % 0.3 % (0.1-12.0); Hemoglobin 12.2 g/dL (12.2-16.2); Lymphocytes # 0.9 K/mm3 (0.7-4.5); Lymphocytes % 11.6 % (10-50); Mean Corpuscular HGB Conc 31.4 g/dL (31.8-35.4); Mean Corpuscular Volume 92.6 fl (81-99); Mean Platelet Volume 7.3 fl (7.4-10.4); Monocytes # 0.7 K/mm3 (0.1-1.0); Monocytes % 9.2 % (1.7-9.3); Neutrophils # 5.9 K/mm3 (1.8-7.8); Neutrophils % 78.6 % (37.0-80.0); Platelet Count 200 K/mm3 (142-424); Red Blood Count 4.21 M/mm3 (4.20-5.40); Red Cell Distribution Width 15.3 % (11.5-17.5); White Blood Count 7.5 K/mm3 (4.8-10.8)
[2019-02-24 07:54] LABS: Albumin Level 2.7 gm/dL (3.4-5.0); Albumin/Globulin Ratio 0.9 (1.1-1.8); Anion Gap 10.8 mEq/L (5-15); Bilirubin,Total 0.5 mg/dL (0.2-1.0); Globulin 3.1 gm/dl (1.3-3.2); Total Protein,Serum 5.8 gm/dL (6.4-8.2)
--- NOTE | 2019-02-24 10:04 | Progress Note ---
Internal Medicine - PN: Subj *Date: 02/24/19 *Time: 10:01 Interval history: FAMILY MEDICINE CONSULT: Discharge is planned today. She feels ready to go home. She did not sleep that well last night. Exam Vital signs and Labs for Last 24 Hours: Temp Pulse Resp BP Pulse Ox 98.8 F 85 18 106/48 L 92 L 02/24/19 04:00 02/24/19 04:00 02/24/19 04:00 02/24/19 04:00 02/24/19 04:00 Laboratory Results - last 24 hr 02/23/19 07:55: Urine Color Yellow, Urine Appearance Clear, Urine pH 5.0, Ur Specific [place] 1.025, Urine Protein Negative, Urine Glucose (UA) Negative, Urine Ketones Negative, Urine Blood Negative, Urine Nitrate Negative, Urine Bilirubin Negative, Urine Urobilinogen 0.2, Ur Leukocyte Esterase Negative, Urine RBC 3-5, Urine WBC 3-5, Ur Squamous Epith Cells 3-5 02/23/19 19:06: TSH 1.86 02/23/19 19:06: Sodium 140, Potassium 3.8, Chloride 104, Carbon Dioxide 30, Anion Gap 9.8, BUN 17, Creatinine 0.90, Estimated Creat Clear 46, Estimated GFR 62, Est GFR ( Amer) 74, Glucose 174 H, Calcium 8.5, Total Bilirubin 0.4, AST 32, ALT 26, Alkaline Phosphatase 53, Total Protein 6.1 L, Albumin 3.0 L, Globulin 3.1, Albumin/Globulin Ratio 1.0 L 02/23/19 19:06: WBC 9.6, RBC 4.76, Hgb 13.4, Hct 43.6, MCV 91.6, MCH 28.3, MCHC 30.9 L, RDW 15.1, Plt Count 226, MPV 7.5, Neut % (Auto) 84.2 H, Lymph % (Auto) 10.6, [place] % (Auto) 5.0, Eos % (Auto) 0.0 L, Baso % (Auto) 0.3, Neut # (Auto) 8.0 H, Lymph # (Auto) 1.0, [place] # (Auto) 0.5, Eos # (Auto) 0.0, Baso # (Auto) 0.0 02/23/19 20:10: POC Glucose 173 H 02/24/19 06:31: POC Glucose 144 H 02/24/19 06:56: WBC 7.5, RBC 4.21, Hgb 12.2, Hct 39.0, MCV 92.6, MCH 29.1, MCHC 31.4 L, RDW 15.3, Plt Count 200, MPV 7.3 L, Neut % (Auto) 78.6, Lymph % (Auto) 11.6, [place] % (Auto) 9.2, Eos % (Auto) 0.3, Baso % (Auto) 0.4, Neut # (Auto) 5.9, Lymph # (Auto) 0.9, [place] # (Auto) 0.7, Eos # (Auto) 0.0, Baso # (Auto) 0.0 02/24/19 06:56: Sodium 140, Potassium 3.8, Chloride 104, Carbon Dioxide 29, Anion Gap 10.8, BUN 19 H, Creatinine 0.88, Estimated Creat Clear 46, Estimated GFR 63, Est GFR ( Amer) 76, Glucose 134 H D, Calcium 8.0 L, Total Bilirubin 0.5, AST 34, ALT 23, Alkaline Phosphatase 51, Total Protein 5.8 L, Albumin 2.7 L, Globulin 3.1, Albumin/Globulin Ratio 0.9 L Laboratory Tests 02/23/19 02/23/19 02/24/19 19:06 19:06 06:56 WBC 9.6 7.5 Hgb 13.4 12.2 Hct 43.6 39.0 Sodium Potassium BUN Creatinine Glucose 174 H 02/24/19 06:56 WBC Hgb Hct Sodium 140 Potassium 3.8 BUN 19 H Creatinine 0.88 Glucose 134 H D I & O for Last 24 hours: Intake & Output 02/21/19 02/22/19 02/23/19 02/24/19 11:59 11:59 11:59 11:59 Intake Total 1890 / 1890 Output Total 800 / 800 Balance 1090 / 1090 Weight 246 lb 260 lb 7 oz - Constitutional no acute distress - *Routine HEENT Exam Head: Present: normocephalic Eye: Present: PERRL ENT: Present: mucous membranes moist - *Routine Respiratory Exam Present: CTA bilaterally - *Routine Cardiovascular Exam Present: RRR - *Routine Extremities Exam Comments: Cast on the right foot. - *Routine Neurological Exam Present: alert, oriented X3 Assessment and Plan (1) Pes planus of right foot Current visit: Yes Status: Resolved Category: Medical Code(s): M21.41 - Flat foot [pes planus] (acquired), right foot (2) Equinus deformity of right foot Current visit: Yes Status: Resolved Category: Medical Code(s): M21.6X1 - Other acquired deformities of right foot (3) Acquired hammer toe of right foot Current visit: Yes Status: Chronic Category: Medical Code(s): M20.41 - Other hammer toe(s) (acquired), right foot (4) Bunion of great toe of right foot Current visit: Yes Status: Resolved Category: Medical Code(s): M21.611 - Bunion of right foot (5) Hypertension Current visit: Yes Status: Acute Category: Medical Code(s): I10 - Essential (primary) hypertension (6) Hypothyroidism Current visit: Yes Status: Acute Category: Medical Code(s): E03.9 - Hypothyroidism, unspecified (7) Obstructive sleep apnea Current visit: Yes Status: Acute Category: Medical Code(s): G47.33 - Obstructive sleep apnea (adult) (pediatric) (8) Type 2 diabetes mellitus Current visit: Yes Status: Acute Category: Medical Code(s): E11.9 - Type 2 diabetes mellitus without complications - Assessment and plan all Dx Assessment and Plan for all problems:: Discharge today. Follow-up with Dr. Rodriguez and with Dr. Lara next week.
== END 2019-02-24 14:00 | disposition home or self-care (01) | DRG 478 ==
LOC: OR 06:04 → 2ND 06:15 → INTOOBSV 06:15 → 2ND 14:29
PROVIDERS: ADMIT Podiatrist; ATTEND Podiatrist
CPT/HCPCS: 36415; 73620; 73630; 76000; 80053; 81001; 82962; 84443; 85025; 88304; 88311; 96374; 97161; C1713; C1762; C1776; G0378

== ENCOUNTER → 2019-03-01 17:49 | Outpatient (CLI) | payer MEDICARE, SELFPAY | LOC: ER 17:50 → LAB.DROPOF 03-04 07:25 | PROVIDERS: Visit Provider Podiatrist | DX: Z98.890 Other specified postprocedural states (principal); T81.49XA Infection following a procedure, other surgical site, initial encounter | CPT/HCPCS: 87070; 87077; 87205 ==

== ENCOUNTER → 2019-03-29 12:10 | Outpatient (CLI) | payer MEDICARE, SELFPAY ==
--- NOTE | 2019-03-29 12:18 | XR_ITS ---
PROCEDURE: XR FOOT RT MIN 3V CLINICAL INDICATION: POST-OP follow-up surgery COMPARISON: MR FOOT RT WO CON from 02/11/2019 XR FOOT RT MIN 3V from 02/23/2019 XR FOOT RT 2V from 02/23/2019 FINDINGS: The no change status post ORIF 1st metatarsophalangeal joint the with some fragmentation at the base of the proximal phalanx of the 1st digit medially. Status post hemiarthroplasty at the metatarsophalangeal joint of the 2nd digit. A longitudinal pin is in place from the distal aspect of the 2nd digit with osteotomy at the PIP joint. The pin has slightly distracted distally. An additional pin is present through the distal aspect of the 3rd toe running along the volar and lateral aspect of the proximal phalanx. This pin does not traverse the head of the 3rd metatarsal. A medial bone plate is present at the 1st metatarsal tarsal joint with other smaller bone plates at the 2nd and 3rd metatarsal tarsal joint and a lateral directed screw from the medial aspect of the base of the 1st and 2nd metatarsals IMPRESSION: Postsurgical changes as described above Dictated by: Simone Franklin MD 03/29/2019 15:32 Electronically signed by Simone Franklin MD in [place] 03/29/2019 15:32
== END ==
PROVIDERS: PCP Family Medicine; Visit Provider Podiatrist
DX: M79.671 Pain in right foot (principal); Z98.890 Other specified postprocedural states
CPT/HCPCS: 73630

== ENCOUNTER → 2019-04-11 14:53 | Outpatient (CLI) | payer MEDICARE, SELFPAY ==
--- NOTE | 2019-04-11 14:57 | XR_ITS ---
PROCEDURE: XR FOOT WT BEARING RT 3V CLINICAL INDICATION: POST-OP Follow-up surgery/ORIF/arthrodesis COMPARISON: XR FOOT RT MIN 3V from 02/23/2019 XR FOOT RT 2V from 02/23/2019 XR FOOT RT MIN 3V from 03/29/2019 FINDINGS: Exam is obtained with the patient's boot in place which obscures much of the bony outline Status post arthrodesis of the 1st 2nd and 3rd metatarsal tarsal joint as before with dorsal bone plate at the 1st metatarsophalangeal junction and a prosthesis at the distal aspect of the 2nd metatarsal. The pins have been removed from the toes. There is mild medial displacement of the middle phalanx of the 2nd digit. Other findings:None. IMPRESSION: Postsurgical changes as described above Dictated by: Simone Franklin MD 04/11/2019 18:48 Electronically signed by Simone Franklin MD in [place] 04/11/2019 18:48
== END ==
PROVIDERS: PCP Family Medicine; Visit Provider Podiatrist
DX: Z98.890 Other specified postprocedural states (principal); M79.671 Pain in right foot
CPT/HCPCS: 73630

== ENCOUNTER → 2019-04-26 13:28 | Outpatient (CLI) | payer MEDICARE, SELFPAY ==
--- NOTE | 2019-04-26 13:34 | XR_ITS ---
PROCEDURE: XR ANKLE WT BEARING RT MIN 3V CLINICAL INDICATION: post op surgery Follow-up surgery COMPARISON: XR FOOT RT MIN 3V from 02/23/2019 XR FOOT RT 2V from 02/23/2019 FINDINGS: There are mild osteoarthritic changes involving the anterior aspect the ankle joint. No fracture or dislocation. No lytic or blastic change. There is a subtle area of sub chondral lucency involving the talar dome just to the right of midline and could be due to an area of osteochondrosis. CT or MRI may confirm. IMPRESSION: Mild osteoarthritic change of the ankle with possible small area of osteo chondrosis of the talar dome Dictated by: Simone Franklin MD 04/26/2019 16:22 Electronically signed by Simone Franklin MD in [place] 04/26/2019 16:22
--- NOTE | 2019-04-26 13:34 | XR_ITS ---
PROCEDURE: XR FOOT WT BEARING RT 3V CLINICAL INDICATION: post op surgery COMPARISON: XR FOOT RT MIN 3V from 02/23/2019 XR FOOT RT 2V from 02/23/2019 XR FOOT RT MIN 3V from 03/29/2019 XR FOOT WT BEARING RT 3V from 04/11/2019 FINDINGS: Multiple previously described postsurgical changes at the Lisfranc joint involving 1st through 3rd cuneiforms and proximal metatarsals and distal 1st metatarsal and metatarsophalangeal joint and distal 2nd metatarsal head are again noted. There is medial subluxation of the distal phalanges at the proximal interphalangeal joint similar to the previous exam. No acute fracture or dislocation. There is diffuse demineralization. Other findings:Plantar calcaneal spurring is noted there is diffuse soft tissue swelling over the midfoot. IMPRESSION: No acute findings. Stable appearance compared to 04/11/2019. Dictated by: Gucci Young 04/26/2019 17:26 Electronically signed by Gucci Young in [place] 04/26/2019 17:26
== END ==
PROVIDERS: PCP Family Medicine; Visit Provider Podiatrist
DX: Z98.890 Other specified postprocedural states (principal); M25.571 Pain in right ankle and joints of right foot
CPT/HCPCS: 73610; 73630

== ENCOUNTER → 2019-05-17 09:43 | Outpatient (CLI) | payer MEDICARE, SELFPAY ==
--- NOTE | 2019-05-17 09:46 | XR_ITS ---
PROCEDURE: XR FOOT WT BEARING RT 3V CLINICAL INDICATION: postop views COMPARISON: XR FOOT RT MIN 3V from 02/23/2019 XR FOOT RT MIN 3V from 03/29/2019 XR FOOT WT BEARING RT 3V from 04/11/2019 XR FOOT WT BEARING RT 3V from 04/26/2019 FINDINGS: Overall no change in the midfoot fusion as well as fusion of the 1st MTP joint. Prosthesis remains in place at the distal aspect of the 2nd metatarsal with mild lateral angulation of the proximal phalanx of the 2nd toe. Prior osteotomy distal aspect of proximal phalanx of the 2nd toe. There remains pes planus. IMPRESSION: Postsurgical changes with pes planus as described above Dictated by: Simone Franklin MD 05/19/2019 08:04 Electronically signed by Simone Franklin MD in [place] 05/19/2019 08:04
== END ==
PROVIDERS: PCP Family Medicine; Visit Provider Podiatrist
DX: Z98.890 Other specified postprocedural states (principal); S92.911D Unspecified fracture of right toe(s), subsequent encounter for fracture with routine healing
CPT/HCPCS: 73630

== ENCOUNTER → 2019-06-06 14:36 | Outpatient (CLI) | payer MEDICARE, SELFPAY ==
--- NOTE | 2019-06-06 14:47 | XR_ITS ---
PROCEDURE: XR FOOT WT BEARING RT 3V CLINICAL INDICATION: postop surgery COMPARISON: XR FOOT RT MIN 3V from 03/29/2019 XR FOOT WT BEARING RT 3V from 04/11/2019 XR FOOT WT BEARING RT 3V from 04/26/2019 XR FOOT WT BEARING RT 3V from 05/17/2019 FINDINGS: The previously reported postsurgical findings are again noted with metallic hardware in place. Overall appearance of the bony elements including alignment and positioning is not significantly changed. Plantar calcaneal spur is noted. No superimposed acute findings are evident Other findings:There is mild dorsal soft tissue swelling over the distal metatarsals. IMPRESSION: Stable appearance of the foot with multiple postsurgical changes. Dictated by: Gucci Young 06/06/2019 15:22 Electronically signed by Gucci Young in [place] 06/06/2019 15:22
== END ==
PROVIDERS: PCP Family Medicine; Visit Provider Podiatrist
DX: Z98.890 Other specified postprocedural states (principal); S92.911D Unspecified fracture of right toe(s), subsequent encounter for fracture with routine healing
CPT/HCPCS: 73630

== ENCOUNTER 2019-06-29 13:00 | Outpatient (RCR) | payer MEDICARE, SELFPAY ==
--- NOTE | 2019-05-05 10:12 | HMH.PTOPEV ---
PT Outpatient Evaluation Rehab PT Outpatient Evaluation Start: 05/05/19 09:44 Freq: Status: Active Protocol: Document 05/05/19 09:44 [email or web address] (Rec: 05/05/19 10:12 RUMA [id number]) Electronically Signed By Jim Allen, PT 05/05/19 09:44 Outpatient Therapy Subjective History Subjective History Patient is a 73 year old female presenting to outpatient PT with reports of R foot/ankle post-surgical pain and decreased mobility. Pt underwent sx on 02/23/19 for correction of posterior tibialis tendon, bunionectomy and 2nd/3rd digit hammertoes. Pt reports hx of R foot for 10+ years. Comorbidites include hx of R ankle fracture , rotator cuff tears, diabetes , L bunionectomy. Chief Complaint Pain,Stiff,Swelling Symptom Type Ache Symptoms Relieved By Rest/Positioning,Ice Symptoms Aggravated By Standing,Physical Activity, Walking Prior Functional Limitations Standing,Squatting,Recreation Activity,Walking,Stairs, Balance Current Functional Limitations Standing,Squatting,Recreation Activity,Walking,Stairs, Balance Symptom Description Intermittent Level of pain today (0-10) 0 Pain scale - at its best (0-10) 0 Pain scale - at its worst (0-10) 3 Ankle/Foot Eval Gait Observation General Gait Pattern Observation Antalgic Gait,Decrease Weight Bear (R) Assistive Device Ambulation Assistive Device Standard Walker Palpation Tenderness right Ankle/Foot Palpation Findings Tenderness Ankle/Foot Palpation Overall Comment 2nd 3rd metatarsal 1st MTP 2/4 ROM Ankle/Foot Dorsiflexion w/Knee Extended -2 Active Range Motion (degrees) Ankle/Foot Plantar Flexion Active Range 48 of Motion (degrees) Ankle/Foot Eversion Active Range of 11 Motion (degrees) Ankle/Foot Inversion Active Range of 22 Motion (degrees) Great Toe Metatarsophalangeal Extension 8 Active Range Motion (degrees) Great Toe Metatarsophalangeal Flexion 18 Active Range of Motion (degrees) Great Toe ROM Limitations Soft Tissue Tightness,Bony Restriction Accessory Movements Metatarsal Accessory Movements that 1-3 ventral and dorsal Elicit Symptoms MMT right Ankle Dorsiflexion Strength Grade 4 Good
--- NOTE | 2019-06-17 17:18 | HMH.RHREAS ---
Rehab Reassessment Rehab OP Re-assessment Start: 06/17/19 16:17 Freq: Status: Active Protocol: Document 06/17/19 16:17 RUMA (Rec: 06/17/19 17:18 RUMA [id number]) Electronically Signed By Jim Allen, PT 06/17/19 16:17 Rehab Re-assessment Subjective Subjective Pt reports 80% improvement since start of care. Objective Objective Notes AROM: DF 8; PF 58; INV 24; EV 24 MMT: 4+/5 all planes Pain: 1/10 at worst over the past week. Neuro:WNL TTP: achilles, 5th ray Assessment Progress Assessment Progressing as Expected Assessment Notes Rx has consisted of ROM, strengthening, manual lymph drainage and modalities for pain/inflammation reduction. She continually reports 0-1/10 pain. She continues to have difficulty with stairs and requires quad cane for ambulation in the community. She has progressed to ambulation out of boot into shoe with brace. The deficits continue to result in functional limitations with community, household and work related activities. Patient goals met STG's LTG 1.,2,4,5,8 Goals Not Met LTG 3,6,7 Revised Goals NA Plan Plan Continue with POC Frequency of Therapy 2x/week Duration of therapy 4 weeks Time and Billing Re-Eval Time 15 Re-Eval Billing Units 1 PHYSICIAN CERTIFICATION: I certify the specified therapy services for Estella Stern are required, authorized, and reviewed every 30 days.
== END 2019-06-29 13:05 | disposition home or self-care (01) ==
LOC: PT 13:00
PROVIDERS: PCP Family Medicine; Visit Provider Podiatrist
DX: S92.911A Unspecified fracture of right toe(s), initial encounter for closed fracture (principal)
CPT/HCPCS: 97010; 97014; 97016; 97110; 97112; 97140; 97163; 97164; 97760; G0283

== ENCOUNTER → 2019-08-02 13:15 | Outpatient (CLI) | payer MEDICARE, SELFPAY ==
--- NOTE | 2019-08-02 13:24 | XR_ITS ---
PROCEDURE: XR FOOT WT BEARING RT 3V CLINICAL INDICATION: postop views Follow-up surgery COMPARISON: XR FOOT WT BEARING RT 3V from 04/11/2019 XR FOOT WT BEARING RT 3V from 04/26/2019 XR FOOT WT BEARING RT 3V from 05/17/2019 XR FOOT WT BEARING RT 3V from 06/06/2019 FINDINGS: Postsurgical changes are present and appear stable compared to the previous exam. Bone plate is present at the dorsal aspect of the 1st metatarsophalangeal joint at the dorsal medial aspect of the 1st metatarsal tarsal joint and along the dorsal aspect of the 2nd and 3rd metatarsal tarsal joint. An articular implant is present at the distal aspect of the 2nd metatarsal with mild lateral angulation of the proximal phalanx of the 2nd digit. There remains pes planus. IMPRESSION: Postsurgical changes with pes planus as described above overall not significantly changed from 06/06/2019 Dictated by: Simone Franklin MD 08/02/2019 13:39 Electronically signed by Simone Franklin MD in [place] 08/02/2019 13:39
== END ==
PROVIDERS: PCP Family Medicine; Visit Provider Podiatrist
DX: Z98.890 Other specified postprocedural states (principal); S92 Fracture of foot and toe, except ankle
CPT/HCPCS: 73630

== ENCOUNTER → 2019-12-28 08:59 | Outpatient (CLI) | payer MEDICARE, SELFPAY ==
--- NOTE | 2019-12-28 09:02 | US_ITS ---
PROCEDURE: US AORTA CLINICAL INDICATION: ABD AORTIC ANEURYSM W/O RUPTURE COMPARISON: US AORTA US aorta from 01/05/2018 FINDINGS: There is mild fusiform dilatation of the mid aspect of the abdominal aorta at 3 cm previously at 2.7 x 2.4 cm. Proximal common iliacs have an unremarkable appearance. IMPRESSION: 3 cm abdominal aortic aneurysm very slightly larger compared to the previous exam Dictated b Simone Franklin MD 12/28/2019 15:04 Simone Franklin MD in [place] 12/28/2019 15:04
== END ==
PROVIDERS: PCP Family Medicine; Visit Provider Family Medicine
DX: I71.4 Abdominal aortic aneurysm, without rupture (principal)
CPT/HCPCS: 76770

== ENCOUNTER → 2020-01-24 08:38 | Outpatient (CLI) | payer MEDICARE, SELFPAY ==
--- NOTE | 2020-01-24 08:41 | MM_ITS ---
PROCEDURE: MM DIG SCREENING MAMM BI W/CAD Referring Doctor: Olivier Lara Patient Age:74Y CLINICAL INDICATION: SCREENING 74-year-old, no hormones. No new complaints noncontributory family history COMPARISON: MG DMSB DIG MAMM-SCREEN VLAD W/CAD from 12/31/2016 MG SCBI MM Dig screening mamm BI w/CAD from 01/05/2018 MG MM DIG SCREENING MAMM BI W/CAD from 01/20/2019 TECHNIQUE: Standard CC and MLO images were obtained. R2 CAD reviewed. Bilateral digital breast tomosynthesis included. FINDINGS: Moderate density breast. No prominent findings but on final review would question minor nodule left breast discussed below No suspicious calcifications either breast. Stable benign calcifications bilateral Right breast. Stable appearance. No new areas of concern. . Stable small axillary lymph node densities Would recommend and encourage follow-up right mammogram in 1 year to assure stability LEFT BREAST:. Question/suggestion small 6 mm low-density nodular density seen at the central superior breast 12 o'clock position. Subtle lobulated margin on CC view./-. Would recommend spot cc and MLO view, along with left breast ultrasound to further evaluate . (This area faintly seen on today's understand when you market knee in standard CC view and cc tomosynthesis image 32-29,.. Only question associated minor focal density on the MLO and MLO tomosynthesis view 48-50 IMPRESSION: LEFT BREAST. On final review, would question a small area of focal nodularity central breast towards 12 o'clock position.. Suggest mammogram spot views followed by ultrasound left breast to further evaluate RIGHT BREAST-no new areas of concern. Right mammogram follow-up in 1 year recommended BI-RAD Category: 0 Need Additional Imaging Evaluation FOLLOW-UP: IMM Immediate Follow-up Recommended (A letter has been sent to the patient regarding results of the study.) Dictated by: Don Oliva MD 01/31/2020 10:39 Don Oliva MD in [place] 01/31/2020 10:39
== END ==
PROVIDERS: PCP Family Medicine; Visit Provider Family Medicine
DX: Z12.31 Encounter for screening mammogram for malignant neoplasm of breast (principal)
CPT/HCPCS: 77063; 77067

== ENCOUNTER → 2020-01-26 15:24 | Outpatient (CLI) | payer MEDICARE, SELFPAY ==
--- NOTE | 2020-01-26 15:34 | XR_ITS ---
PROCEDURE: XR FOOT WT BEARING RT 3V CLINICAL INDICATION: pain, postop COMPARISON: CR XR FOOT WT BEARING RT 3V from 04/26/2019 CR XR FOOT WT BEARING RT 3V from 05/17/2019 CR XR FOOT WT BEARING RT 3V from 06/06/2019 CR XR FOOT WT BEARING RT 3V from 08/02/2019 FINDINGS: Dorsal bone plate is present at the 1st metatarsophalangeal joint with bony hypertrophy. Status post hemiarthroplasty of the 2nd metatarsophalangeal joint at the 2nd digit. Status post 2nd and 3rd metatarsal tarsal fusion with dorsal bone plate. There is pes planus. Status post 1st metatarsal tarsal fusion. IMPRESSION: Postsurgical changes with pes planus Dictated by: Simone Franklin MD 01/26/2020 16:44 Simone Franklin MD in [place] 01/26/2020 16:44
== END ==
PROVIDERS: PCP Family Medicine; Visit Provider Podiatrist
DX: M79.673 Pain in unspecified foot (principal)
CPT/HCPCS: 73630

== ENCOUNTER → 2020-04-11 13:30 | Outpatient (CLI) | payer MEDICARE, SELFPAY ==
--- NOTE | 2020-04-11 13:36 | MM_ITS ---
PROCEDURE: MM DIG MAMM DX UNILAT LT CAD Digital Breast Tomosynthesis Included CLINICAL INDICATION: ABN MAMM Follow-up abnormal mammogram COMPARISON: MG SCBI MM Dig screening mamm BI w/CAD from 01/05/2018 MG MM DIG SCREENING MAMM BI W/CAD from 01/20/2019 MG MM DIG SCREENING MAMM BI W/CAD from 01/24/2020 US US BREAST LT COMPLETE from 04/11/2020 TECHNIQUE: Standard CC and MLO images and 3D Tomosynthesis was obtained. R2 CAD reviewed. FINDINGS: There is average fibroglandular tissue. The area of concern appears to compress out on the spot compressed view. Left breast ultrasound: There is a 4 mm cyst at 1 o'clock which could account for the mammographic findings. No suspicious nodules evident. IMPRESSION: Probably benign findings. Recommend six-month sonographic and mammographic follow-up BI-RAD Category: 3 Probably Benign Finding Short Term Follow-up FOLLOW-UP: 6M 6Month Follow-up (A letter has been sent to the patient regarding results of the study.) Dictated by: Simone Franklin MD 04/27/2020 10:18 Simone Franklin MD in [place] 04/27/2020 10:18
== END ==
PROVIDERS: PCP Family Medicine; Visit Provider Family Medicine
DX: R92.8 Other abnormal and inconclusive findings on diagnostic imaging of breast (principal)
CPT/HCPCS: 76641; 77061; 77065; G0279

== ENCOUNTER → 2020-09-19 13:44 | Outpatient (CLI) | payer MEDICARE, SELFPAY ==
--- NOTE | 2020-09-19 13:55 | MM_ITS ---
PROCEDURE: MM DIG MAMM DX UNILAT LT CAD Digital Breast Tomosynthesis Included Left breast ultrasound complete CLINICAL INDICATION: ABN MAMM Follow-up abnormal mammogram COMPARISON: MG MM DIG SCREENING MAMM BI W/CAD from 01/20/2019 MG MM DIG SCREENING MAMM BI W/CAD from 01/24/2020 MG MM DIG MAMM DX UNILAT LT CAD from 04/11/2020 US US BREAST LT COMPLETE from 04/11/2020 US US BREAST LT COMPLETE from 09/19/2020 TECHNIQUE: Standard CC and MLO images and 3D Tomosynthesis was obtained. R2 CAD reviewed. FINDINGS: Average fibroglandular tissue. No malignant appearing mass or malignant-appearing microcalcification. A small well-circumscribed nodular density is present in the retroareolar region centrally and may be due to cyst Left breast ultrasound: There remains a 3 mm cyst at the 1 o'clock region of the left breast near the nipple a questionable hypoechoic area is noted just deep to this region may be due to fibroglandular tissue benign-appearing unchanged IMPRESSION: BI-RAD Category: 2 Benign Finding(s) FOLLOW-UP: Suggest resume screening March 2021 (A letter has been sent to the patient regarding results of the study.) Dictated by: Simone Franklin MD 09/21/2020 18:33 Simone Franklin MD in [place] 09/21/2020 18:33
== END ==
PROVIDERS: PCP Family Medicine; Visit Provider Family Medicine
DX: R92.8 Other abnormal and inconclusive findings on diagnostic imaging of breast (principal)
CPT/HCPCS: 76641; 77061; 77065; G0279

== ENCOUNTER → 2021-01-01 08:35 | Outpatient (CLI) | payer MEDICARE, SELFPAY ==
--- NOTE | 2021-01-01 08:41 | US_ITS ---
PROCEDURE: US ABD. AORTA SCREENING CLINICAL INDICATION: AAA COMPARISON: US US AORTA from 12/28/2019 FINDINGS: Fusiform mid abdominal aortic aneurysm is present measuring 3 cm in AP dimension and 3 cm transverse. The distal abdominal aorta is normal in caliber. Unremarkable proximal common iliacs. IMPRESSION: No significant change 3 cm mid abdominal aortic aneurysm Dictated by: Simone Franklin MD 01/01/2021 17:19 Simone Franklin MD in [place] 01/01/2021 17:19
== END ==
PROVIDERS: PCP Family Medicine; Visit Provider Family Medicine
DX: Z13.6 Encounter for screening for cardiovascular disorders (principal)
CPT/HCPCS: 76705

== ENCOUNTER → 2021-01-22 08:18 | Outpatient (CLI) | payer MEDICARE, SELFPAY ==
--- NOTE | 2021-01-22 08:22 | XR_ITS ---
PROCEDURE: XR DEXA AXIAL SKELETON CLINICAL HISTORY: OSTEOPENIA COMPARISON: CR BONE3 BONE DENSITOMETRY(HIP:LT SPINE from 12/31/2016 FINDINGS: The right hip BMD is 0.838 with a T-score of -0.1. The left hip BMD is 0.752 with a T-score of -0.9. The lumbar spine BMD is 1.053 with a T-score of 0.1. Previously the lowest density was in the left femoral neck with a T-score of -1.1 IMPRESSION: This patient is considered normal according to the World Health Organization criteria. Fracture risk is low. Based on these results a follow-up exam is recommended in 2 year. Dictated by: Siomne Franklin MD 01/22/2021 12:25 Simone Franklin MD in [place] 01/22/2021 12:25
== END ==
PROVIDERS: PCP Family Medicine; Visit Provider Family Medicine
DX: M85.89 Other specified disorders of bone density and structure, multiple sites (principal)
CPT/HCPCS: 77080

== ENCOUNTER → 2021-04-15 08:16 | Outpatient (CLI) | payer MEDICARE, SELFPAY ==
--- NOTE | 2021-04-15 08:18 | MM_ITS ---
PROCEDURE INFORMATION: Exam: MG Bilateral Screening 3D Mammography Exam date and time: 04/15/2021 8:18 AM Age: 75 years old Clinical indication: Encounter for screening mammogram for malignant neoplasm of breast TECHNIQUE: Imaging protocol: Bilateral screening tomosynthesis and 2D mammography including computer-aided detection (CAD) when performed. COMPARISON: 1. MG MM DIG MAMM DX UNILAT LT CAD 09/19/2020 1:57 PM 2. MG MM DIG MAMM DX UNILAT LT CAD 04/11/2020 1:38 PM FINDINGS: MAMMOGRAPHY: Breast composition: The breast tissue is composed of scattered areas of fibroglandular density. Mass: None. Architectural distortion: None. Calcifications: No suspicious calcifications. Asymmetric density: None. Skin thickening: None. Axillary adenopathy: None. IMPRESSION: No mammographic evidence of malignancy. Annual screening is recommended unless otherwise clinically indicated. ASSESSMENT: BI-RADS Category 1: Negative
== END ==
PROVIDERS: PCP Family Medicine; Visit Provider Nurse Practitioner Family
DX: Z12.31 Encounter for screening mammogram for malignant neoplasm of breast (principal)
CPT/HCPCS: 77063; 77067

== ENCOUNTER → 2022-08-07 07:36 | Outpatient (CLI) | payer MEDICARE, SELFPAY ==
--- NOTE | 2022-08-07 07:42 | US_ITS ---
FINAL REPORT CLINICAL HISTORY: AAA COMPARISON: 12/28/2019 FINDINGS: Limited sonographic images were obtained of the abdomen to evaluate the abdominal aorta and iliac arteries. The abdominal aorta measures up to 2.6 cm in greatest dimension, previously measured 3 cm. The iliac arteries are within normal limits. IMPRESSION: 2.6 cm ectasia of the mid abdominal aorta. Reviewed, Interpreted and Dictated by Brayan Villatoro MD Transcribed by Ambika Kramer Authenticated and [facility]
== END ==
PROVIDERS: PCP Family Medicine; Visit Provider Family Medicine
DX: I71.40 Abdominal aortic aneurysm, without rupture, unspecified (principal)
CPT/HCPCS: 76770

== ENCOUNTER → 2022-08-14 08:07 | Outpatient (CLI) | payer MEDICARE, SELFPAY ==
--- NOTE | 2022-08-14 08:14 | MM_ITS ---
PROCEDURE INFORMATION: Exam: MG Bilateral Screening 3D Mammography Exam date and time: 08/14/2022 8:08 AM Age: 76 years old Clinical indication: Screening. No family history of breast cancer. TECHNIQUE: Imaging protocol: Bilateral Screening tomosynthesis and 2D mammography including computer-aided detection (CAD) when performed. COMPARISON: 1. MG MM DIG SCREENING MAMM BI W/CAD 04/15/2021 8:23 AM 2. MG MM DIG MAMM DX UNILAT LT CAD 09/19/2020 1:57 PM 3. MG MM DIG MAMM DX UNILAT LT CAD 04/11/2020 1:38 PM 4. MG MM DIG SCREENING MAMM BI W/CAD 01/24/2020 8:56 AM FINDINGS: MAMMOGRAPHY: Breast composition: There are scattered areas of fibroglandular density. Mass: No suspicious mass. Architectural distortion: None. Calcifications: No suspicious calcifications. Asymmetric density: None. Skin thickening: None. Axillary adenopathy: None. IMPRESSION: No mammographic evidence of malignancy. Annual screening is recommended unless otherwise clinically indicated. ASSESSMENT: BI-RADS Category 1: Negative
== END ==
PROVIDERS: PCP Family Medicine; Visit Provider Family Medicine
DX: Z12.31 Encounter for screening mammogram for malignant neoplasm of breast (principal)
CPT/HCPCS: 77063; 77067

== ENCOUNTER 2023-07-16 09:18 | Outpatient (CLI) | payer MEDICARE, SELFPAY ==
--- NOTE | 2023-07-16 09:23 | XR_ITS ---
FINAL REPORT CLINICAL HISTORY: KNEE PAIN COMPARISON: None FINDINGS: AP, lateral and oblique views of the left knee were obtained. There is no prior exam for comparison. There is no acute osseous abnormality of the left knee. The joint space is preserved. The soft tissues are normal. A small to moderate size joint effusion is present. IMPRESSION: No acute osseous abnormality of the left knee. Small to moderate joint effusion. Reviewed, Interpreted and Dictated by Elena Hardy MD Transcribed by Sisi Teixeira Authenticated and [facility]
== END 2023-07-16 23:59 ==
LOC: RAD 09:19
PROVIDERS: PCP Family Medicine; Visit Provider Family Medicine
DX: M25.562 Pain in left knee (principal)
CPT/HCPCS: 73562

== ENCOUNTER 2023-11-26 14:28 | Outpatient (CLI) | payer MEDICARE, SELFPAY ==
--- NOTE | 2023-11-26 14:53 | MM_ITS ---
PROCEDURE INFORMATION: Exam: MG Bilateral Screening 3D Mammography Exam date and time: 11/26/2023 2:41 PM Age: 78 years old Clinical indication: Screening examination TECHNIQUE: Imaging protocol: Bilateral Screening tomosynthesis and 2D mammography including computer-aided detection (CAD) when performed. COMPARISON: 1. MG MM DIG SCREENING MAMM BI W/CAD 08/14/2022 8:08 AM 2. MG MM DIG SCREENING MAMM BI W/CAD 04/15/2021 8:23 AM FINDINGS: MAMMOGRAPHY: Breast composition: There are scattered areas of fibroglandular density. Mass: None. Architectural distortion: None. Calcifications: No suspicious calcifications. Asymmetric density: None. Skin thickening: None. Axillary adenopathy: None. IMPRESSION: No mammographic evidence of malignancy. Annual screening is recommended unless otherwise clinically indicated. ASSESSMENT: BI-RADS Category 1: Negative
== END 2023-11-26 23:59 | disposition home or self-care (01) ==
LOC: RAD 14:29
PROVIDERS: PCP Family Medicine; Visit Provider Family Medicine
DX: Z12.31 Encounter for screening mammogram for malignant neoplasm of breast (principal)
CPT/HCPCS: 77063; 77067

== ENCOUNTER 2024-01-19 09:02 | Outpatient (CLI) | payer MEDICARE, SELFPAY ==
--- NOTE | 2024-01-19 09:05 | XR_ITS ---
FINAL REPORT TECHNIQUE: Bone mineral density was calculated of the lumbar spine and hip. CLINICAL HISTORY: SCREENING COMPARISON: None FINDINGS: Using L1-4, the bone mineral density of the spine is 1.084 g/cm2, corresponding to T-score of 0.3. Using the left hip, the bone mineral density of the femoral neck is 0.739 g/cm2, corresponding to a T-score of -1.0. NOTE: T-score: Standard deviation compared with peak bone mass of young adult mean. *Following the recommendations of the International Society of Bone densitometry, classification of hip BMD is based on the lower of two T-scores; total hip or femoral neck. IMPRESSION: Diminished bone mineral density of the lumbar spine and left hip consistent with low bone density. Reviewed, Interpreted and Dictated by Ethan Pineda III, MD Transcribed by Sisi Teixeira Authenticated and [facility]
== END 2024-01-19 23:59 | disposition home or self-care (01) ==
LOC: RAD 09:02
PROVIDERS: PCP Family Medicine; Visit Provider Family Medicine
DX: M81.0 Age-related osteoporosis without current pathological fracture (principal); Z78.0 Asymptomatic menopausal state
CPT/HCPCS: 77080

== ENCOUNTER 2024-07-21 07:49 | Outpatient (CLI) | payer MEDICARE, SELFPAY ==
--- NOTE | 2024-07-21 07:53 | US_ITS ---
FINAL REPORT CLINICAL HISTORY: ABD ANEURYSM W/O RUPTURE COMPARISON: 08/07/2022 FINDINGS: ULTRASOUND ABDOMINAL AORTA Findings: Sagittal and transverse images with Doppler exam was performed of the aorta. There is a mild fusiform aneurysm of the upper abdominal aorta, which measures up to 3.1 cm, was previously 2.6 cm. Mild plaque disease is noted. Proximal iliac vessels are normal in caliber. Incidental note is made of fatty infiltration of the liver. Aorta is patent by Doppler exam without gross stenosis. IMPRESSION: Mild fusiform aneurysm of the upper abdominal aorta, measuring up to 3.1 cm, was previously 2.6 cm in 2022. Continued surveillance is recommended. Reviewed, Interpreted and Dictated by Tico Mendez MD Transcribed by Sisi Teixeira Authenticated and [facility]
== END 2024-07-21 23:59 | disposition home or self-care (01) ==
LOC: RAD 07:50
PROVIDERS: PCP Family Medicine; Visit Provider Family Medicine
DX: I71.40 Abdominal aortic aneurysm, without rupture, unspecified (principal)
CPT/HCPCS: 76770

== ENCOUNTER 2025-02-09 16:34 | Outpatient (CLI) | payer MEDICARE, SELFPAY ==
--- OUTSIDE RECORDS SUMMARY | 2024-07-12 05:15 | XMS_ITS ---
Author Organization [facility] Address [address] [place] [id number] Care Team Providers Care [employer]ing Representative Name Role Phone Oscar Lara Primary Care Provider Allergies Allergen (clinical drug ingredient) Drug/Non Drug Allergy documented on EMR Reaction Allergy Type Onset Date Status Non-steroidal anti-inflammatory agent (FN) NSAIDs Hx of peptic ulcers Drug Allergy Active Results Component Value Reference Range Notes CBC Venipuncture (in house) Reviewed date:07/14/2024 08:40:13 AM Interpretation:Normal Performing Lab: Notes/Report: Normal wbc 5.0 3.5 - 10 lymph 18.1 15 - 50 mid 5.2 2 - 15 gran 76.7 35 - 80 rbc 5.19 3.5 - 5.5 hgb 15.4 11.5 - 16.5 hct 45.8 35 - 55 mcv 88.2 75 - 100 mch 29.6 25 - 35 mchc 33.6 31 - 38 platlet 221 100 - 400 Glycohemoglobin A1c (in hous e) Reviewed date:07/14/2024 08:40:13 AM Interpretation:6.4% Performing Lab: Notes/Report: 6.4% glycohemoglobin 6.4% 5 - 6.5 % P-Comprehensive Metabolic Pa yeyo (CMP) Reviewed date:07/14/2024 08:40:13 AM Interpretation: Performing Lab: Notes/Report: CLIA: [id number] Colton Kennedy MD, Plumbing Engineer [facility] [place] [address] , [address], [place] [address] Test performed by [facility] Sodium 142 135-145 mmol/L Potassium 4.6 3.5-5.3 mmol/L Chloride 101 97-108 mmol/L CO2 27 22-32 mmol/L Glucose 134 65-99 mg/dL BUN 16 8-23 mg/dL Creatinine 0.77 0.50-1.00 mg/dL Calcium 10.2 8.6-10.4 mg/dL eGFR by Creatinine 79 >59 mL/min/1.73m2 Protein 6.8 6.0-8.3 g/dL Albumin 4.3 3.5-5.3 g/dL Alkaline Phosphatase 76 35-121 IU/L ALT (SGPT) 21 <5-47 IU/L AST (SGOT) 20 <5-40 IU/L Bilirubin, Total 0.4 <0.2-1.2 mg/dL A/G Ratio 1.7 1.1-2.5 P-TSH Reviewed date:07/14/2024 08:40:13 AM Interpretation: Performing Lab: Notes/Report: Test performed by [facility] [address] [place] [address] , [place] [address] Colton Kennedy MD, Plumbing Engineer CLIA: [id number] TSH 0.90 0.43-5.25 mU/L P-Microalbumin/Creatinine, R andom Urine Sample Reviewed date:07/14/2024 08:40:13 AM Interpretation: Performing Lab: Notes/Report: Test performed by [facility] [address] [place] [address] , [place] [address] Colton Kennedy MD, Plumbing Engineer CLIA: [id number] Albumin/Creatinine Ratio, Urine 5 0-30 ug/m g Microalbumin, Urine, Random 0.5 Creatinine, Urine 99.2 P-Vitamin D 25-Hydroxy Reviewed date:07/14/2024 08:40:13 AM Interpretation: Performing Lab: Notes/Report: Test performed by [facility] [address] [place] [address] , [place] [address] Colton Kennedy MD, Plumbing Engineer CLIA: [id number] Vitamin D 25-Hydroxy 22.3 30.0-100.0 ng/mL Interpretation of Vitamin D 25 OH: < 20 ng/mL - Deficiency 20 - 29 ng/mL - Insufficiency 30 - 100 ng/mL - Sufficiency > 100 ng/mL - Super-therapeutic- toxicity may occur above this level. Clinical correlation required. Ultrasound : Aorta Reviewed date:07/26/2024 08:59:53 AM Interpretation:AAA increased in size to 3.1 cm Performing Lab: Notes/Report: AAA increased in size to 3.1 cm REASON FOR VISIT 6 month check and AWV Medications Medication SIG (Take, Route, Frequency, Duration) Notes Start Date End Date Status Simvastatin 40 MG 1 tablet in the even ing Orally Once a day; Duration: 90 days Active Glimepiride 1 MG 1 tablet with breakf ast or the first main meal of the day Orally Once a day Active Glimepiride 1 MG 1 tablet with breakf ast or the first main meal of the day Orally Once a day Active Levothyroxine Sodium 112 MCG 1 tablet in the morning on an empty stomach Orally Once a day; Duration: 90 days Active CareTouch CPAP & BIPAP Hose 1 DIRECTED Active metFORMIN HCl 850 MG 1 tab(s) orally one a day Active Pantoprazole Sodium 40 MG TAKE 1 TABLET EVERY DAY Active Lisinopril-hydroCHLOROthiazi de 20-12.5 MG 1 tab(s) orally once a day Active Levothyroxine Sodium 112 MCG TAKE 1 TABLET EVERY DAY Active Simvastatin 40 MG TAKE 1 TABLET AT BEDTIME Active Lisinopril-hydroCHLOROthiazi de 20-12.5 MG 1 tab(s) orally once a day; Duration: 90 days Active metFORMIN HCl ER (MOD) 1000 MG 1 tablet with evening meal Orally Once a day Active Immunizations Vaccine Route Administration Date Status Comme nts Prevnar (PCV20) IM Intramuscular 07/12/2024 Administered Vital Signs Blood pressure systolic 120 mm Hg 07/12/19 25 Blood pressure diastolic 70 mm Hg 025 Heart Rate 93 /min 07/12/2024 Height 65 in 07/12/2024 Weight 235.6 lbs 07/12/2024 BMI 39.20 kg/m2 07/12/2024 Encounters Encounter Location Date Provider Diagnosis [facility] [address] [facility] [address] [place], [place] [id number] 07/12/2024 Oscar Lara Adult general medica l examination Z00.00 ; Type 2 diabetes mellitus without complication, without long-term current use of insulin E11.9 ; Acquired hypothyroidism E03.9 ; Mixed hyperlipidemia E78.2 ; HTN (hypertension) I10 ; Vitamin D deficiency E55.9 ; Gastroesophageal reflux disease without esophagitis K21.9 ; Postmenopausal Z78.0 ; BMI 39.0-39.9,adult Z68.39 ; Abdominal aortic aneurysm (AAA) without rupture, unspecified part I71.40 ; Osteopenia M85.80 ; KEYON (obstructive sleep apnea) G47.33 and Hx of peptic ulcer Z87.11 Assessments Encounter Date Diagnosis (ICD Code) Assessment Notes Treatment Notes Treatment Clinical Notes Section Notes 07/12/2024 Adult general medical examination (ICD-10 - Z00.00) Patient instructed to return to office Annually for Annual Wellness Visits to include annual screenings of Pain assessment, Functional Ability assessment, Cognitive Ability assessment, Fall Risk assessment, Depression screening and Bladder control screening. 07/12/2024 Type 2 diabetes mellitus without complication, without long-term current use of insulin (ICD-10 - E11.9) 07/12/2024 Acquired hypothyroidism (ICD-10 - E03.9) 07/12/2024 Mixed hyperlipidemia (ICD-10 - E78.2) 07/12/2024 HTN (hypertension) (ICD-10 - I10) 07/12/2024 Vitamin D deficiency (ICD-10 - E55.9) 07/12/2024 Gastroesophageal reflux disease without esophagitis (ICD-10 - K21.9) 07/12/2024 Postmenopausal (ICD-10 - Z78.0) 07/12/2024 BMI 39.0-39.9,adult (ICD-10 - Z68.39) 07/12/2024 Abdominal aortic aneurysm (AAA) without rupture, unspecified part (ICD-10 - I71.40) 07/12/2024 Osteopenia (ICD-10 - M85.80) 07/12/2024 KEYON (obstructive sleep apnea) (ICD-10 - G47.33) 07/12/2024 Hx of peptic ulcer (ICD-10 - Z87.11) Plan Of Treatment Medication Medication Name Sig Start Date Stop Date Notes Glimepiride 1 MG 1 tablet with breakf ast or the first main meal of the day Orally Once a day metFORMIN HCl 850 MG 1 tab(s) orally one a day Pantoprazole Sodium 40 MG TAKE 1 TABLET EVERY DAY Lisinopril-hydroCHLOROthiazi de 20-12.5 MG 1 tab(s) orally once a day Levothyroxine Sodium 112 MCG TAKE 1 TABLET EVERY DAY Simvastatin 40 MG TAKE 1 TABLET AT BEDTIME Treatment Notes Assessment Notes Adult general medical examination Patien t instructed to return to office Annually for Annual Wellness Visits to include annual screenings of Pain assessment, Functional Ability assessment, Cognitive Ability assessment, Fall Risk assessment, Depression screening and Bladder control screening. Next Appt Details Follow Up: 6 Months, Reason: Provider Name:Oscar Myers et, 07/13/2025 09:00:00 AM, [address], [address], [place], [place], [id number], Progress Notes * ASIYAJarrettWilianB:1945 (79 yo F)Acc No.[id number]:07/12/2024 Annual Wellness Visit Patient: Estella CASTANEDA Provider: Oscar Lara M.D. :1945 A ge:78 Y S ex:Female Date:07/12/2024 Address:[address] [place] [address], [place], [id number] Subjective: * Chief Complaints: * 1 . 6 month check and AWV. * HPI: H PI: Patient is here today for a scheduled 6 month check up and a Medicare Annual Wellness Visit. Pt sts she is doing and has no new concerns or complaints at this time. Pt sts she is fasting today. * ROS: O PTHALMOLOGY: Negative for d enies vision issues. * Medical History: G raves disease, Hypertension, Large hiatal hernia, HLP, Dropped bladder, Abdominal aortic aneurysm, Cataracts, Anemia, GERD, Solitary pulmonary nodule - stable by serial CTs, Iron deficiency, Diverticulosis, Peptic ulcer disease, KEYON, Right rotator cuff tear, Type 2 DM, Vitamin D deficiency. * Surgical History: h ammer toe (LT.) , vocal cord scrape 1981, tubal 1973, appendectomy 1967, tonsillectomy , gallbladder removed 01/24, cataract surgery both eyes 2/15 3/15 , EGD 2016, Colonoscopy 2016, hammer toe and bunion removal of right foot-Dr Rodriguez 02/23/2019. * Hospitalization/Major Diagno stic Procedure: s ee above , H-anemia 12/01/10, H-peptic ulcer, GI bleed 04/28 to 05/01/14, [facility] er-abdominal pain 09/12/14. * Family History: F ather: 59 yrs, congestive heart failure, blood clot. M other: 84 yrs, congestive heart failure,, alzheimer, stroke. P aternal Grand Mother: ? diabetes. M aternal Grand Mother: alzheimer. 1 sister(s) . 2 son(s) , 1 daughter(s) . . * Social History: C URRENT TOBACCO USE S moking Status: Patient does NOT smoke. C affeine: yes, frequency: one to two cups of coffee a day. Home smoke detector use: yes. Marital Status: Single. Occupation: [employer] in [place]. Past smoking status: no, Smoking status: Does not smoke. Alcohol: No. * Medications: T [facility] CareTouch CPAP & BIPAP Hose MACHINE AND SUPPLIES 1 DIRECTED , Taking Pantoprazole Sodium 40 MG Tablet Delayed Release TAKE 1 TABLET EVERY DAY , Taking Simvastatin 40 MG Tablet 1 tablet in the evening Orally Once a day , Taking Levothyroxine Sodium 112 MCG Tablet 1 tablet in the morning on an empty stomach Orally Once a day , Taking Glimepiride 1 MG Tablet 1 tablet with breakfast or the first main meal of the day Orally Once a day , Taking metFORMIN HCl ER (MOD) 1000 MG Tablet Extended Release 24 Hour 1 tablet with evening meal Orally Once a day , Taking Lisinopril-hydroCHLOROthiazide 20-12.5 MG Tablet 1 tab(s) orally once a day , Medication List reviewed and reconciled with the patient * Allergies: N SAIDs: Hx of peptic ulcers - Contraindication. Objective: * Vitals: W t:235.6, Temp:97.8, BP:120/70, HR:93, O2 Sat:94% on RA, Nurse:naeem, Ht: 65, BMI:39.20. * Examination: G eneral Examination: General Appearance: N AD.. N simi: s upple, no lymphadenopathy, no thyromegaly. H eart: R SR. L ungs: c lear to auscultation. A bdomen: obese, soft, +BS, no masses or tenderness. B ack: thoracic kyphosis. E xtremities: n o leg edema. * Physical Examination: G ENERAL: Pain Assessment: P ain level: 2, on a scale of 0-10 (with 10 being extreme pain). F unctional Status Assessment: P atient response to question of how often physical health interferes with daily activities: . Almost never Able to perform ADLs-including meal preparation, grocery shopping, housework, laundry, taking medications or handling finances. Cognitive Status: alert and oriented. Ambulation Status: Fully ambulatory . F all Risk Assessment: I ndependant in ambulation, adequate lighting in home. Patient has NOT fallen or had trouble walking within the past 12 months. D epression Screening: Ramez burnham depressed mood or anxiety. Describes emotional health as: calm. B ladder Control Screening: Ramez burnham problems. Assessment: * Assessment: 1. A dult general medical examination - Z00.00 (Primary) 2 . T ype 2 diabetes mellitus without complication, without long-term current use of insulin - E11.9 3 . A cquired hypothyroidism - E03.9 4 . M ixed hyperlipidemia - E78.2 & #160; 5 . H TN (hypertension) - I10 6 . V itamin D deficiency - E55.9? 7. G astroesophageal reflux disease without esophagitis - K21.9 8 . P ostmenopausal - Z78.0 9 . B PR 39.0-39.9,adult - Z68.39 10. A bdominal aortic aneurysm (AAA) without rupture, unspecified part - I71.40 ?11. O steopenia - M85.80 1 2. O SA (obstructive sleep apnea) - G47.33? 13. H x of peptic ulcer - Z87.11 Plan: * Treatment: 2. T ype 2 diabetes mellitus without complication, without long-term current use of insulin Resume metFORMIN HCl Tablet, 850 MG, 1 tab(s), orally, one a day; C ontinue Glimepiride Tablet, 1 MG, 1 tablet with breakfast or the first main meal of the day, Orally, Once a day. 3. A cquired hypothyroidism Continue Levothyroxine Sodium Tablet, 112 MCG, TAKE 1 TABLET EVERY DAY. L AB: P-TSH (Collection Date & Time - 07/12/2024 08:39 AM) Value Reference Range T SH 0.90 0.43-5.25 - mU/L * Marco,Oscar Farnsworth 07/14/2024 8 :39:59 AM >See phone encounter 4.?Mixed hyperlipidemia? Continue Simvastatin Tablet, 40 MG, TAKE 1 TABLET AT BEDTIME.??5.?HTN (hypertension)? Continue Lisinopril-hydroCHLOROthiazide Tablet, 20-12.5 MG, 1 tab(s), orally, once a day.?LAB: P-Comprehensive Metabolic Panel (CMP) (Collection Date & Time - 07/12/2024 08:39 AM)* Value Reference Range A /G Ratio 1.7 1.1-2.5 - * A lbumin 4.3 3.5-5.3 - g/dL * A lkaline Phosphatase 76 35-121 - IU/L * A LT (SGPT) 21 <5-47 - IU/L * A ST (SGOT) 20 <5-40 - IU/L * B ilirubin, Total 0.4 <0.2-1.2 - mg/dL * B UN 16 8-23 - mg/dL * C alcium 10.2 8.6-10.4 - mg/dL * C hloride 101 97-108 - mmol/L * C O2 27 22-32 - mmol/L * C reatinine 0.77 0.50-1.00 - mg/dL * G lucose 134 H 65-99 - mg/dL * P otassium 4.6 3.5-5.3 - mmol/L * S odium 142 135-145 - mmol/L * P rotein 6.8 6.0-8.3 - g/dL * e GFR by Creatinine 79 >59 - mL/min/1.73m2 * Oscar Lara 07/14/2024 8 :39:59 AM >See phone encounter ?LAB: CBC Venipuncture (in house) (Collection Date & Time - 07/12/2024)? Normal* Value Reference Range w bc 5.0 3.5 - 10 * l ymph 18.1 15 - 50 * m id 5.2 2 - 15 * g ran 76.7 35 - 80 * r bc 5.19 3.5 - 5.5 * h gb 15.4 11.5 - 16.5 * h ct 45.8 35 - 55 * m cv 88.2 75 - 100 * m ch 29.6 25 - 35 * m chc 33.6 31 - 38 * p latlet 221 100 - 400 * Shyanne Metz 07/12/2024 10:00 :01 AM > Oscar Lara 07/14/2024 8:39:59 AM >See phone encounter 6.?Vitamin D deficiency?LAB: P-Vitamin D 25-Hydroxy (Collection Date & Time - 07/12/2024 08:39 AM) * Value Reference Range V itamin D 25-Hydroxy 22.3 L 30.0-100.0 - ng/mL * Oscar Lara 07/14/2024 8 :39:59 AM >See phone encounter 7.?Gastroesophageal reflux disease without esophagitis? Continue Pantoprazole Sodium Tablet Delayed Release, 40 MG, TAKE 1 TABLET EVERY DAY.??8.?Postmenopausal?LAB: P-Microalbumin/Creatinine, Random Urine Sample (Collection Date & Time - 07/12/2024 08:39 AM)* Value Reference Range A lbumin/Creatinine Ratio, Urine 5 0-30 - ug /mg * C reatinine, Urine 99.2 - mg/dL * M icroalbumin, Urine, Random 0.5 - mg/dL * Oscar Lara 07/14/2024 8 :39:59 AM >See phone encounter 9.?Abdominal aortic aneurysm (AAA) without rupture, unspecified part?Imaging: Ultrasound : Aorta (Performed Date - 07/21/2024)?AAA increased in size to 3.1 cm* Rosy Solomon 07/13/2024 9:07: 57 AM > no auth required; CPT code 16211; faxed to [facility] Oscar Pak 07/26/2024 8:59:44 AM > See phone encounter * Immunizations: Prevnar (PCV20) : 0.5 mL (Route: Intramuscular) given by Shyanne Houg , [facility] on Right Deltoid (HTN (hypertension)) * Labs: * L ab: Glycohemoglobin A1c (in house) (Collection Date & Time - 07/12/2024) 6 .4% Value Reference Range g lycohemoglobin 6.4% 5 - 6.5 % * Shyanne Metz 07/12/2024 10:04 :07 AM > Marco,R Javad 07/14/2024 8:39:59 AM >See phone encounter * Procedure Codes: G 0439 ANNUAL WELLNESS VST; PPS SUBSQT VST, G2211 Complex e/m visit add on, G0444 ANNUAL DEPRESSION SCREENING 15 MIN, 1090F PRES/ABSN URINE INCON ASSESS, 3288F FALL RISK ASSESSMENT DOCD, 1170F FXNL STATUS ASSESSED, 1159F MED LIST DOCD IN RCRD, 1003F LEVEL OF ACTIVITY ASSESS, 1036F TOBACCO NON-USER, 13599 GLYCATED HEMOGLOBIN TEST, Modifiers: QW , 95559 CBC WITH AUTO DIFF, 1125F AMNT PAIN NOTED PAIN PRSNT, 3044F HG A1C LEVEL LT 7.0%, G8752 MOST RECENT SYSTOLIC BP < 140MM HG, G8754 MOST RECENT DIASTOLIC BP < 90MM HG, G8510 NEG SCR Depression PT NOT ELIG F/U/PLN DOC, 4040F PNEUMOC IMM ORDER/ADMIN * Preventive Medicine: Counseling: E motional health: D iscussed ways to improve socialization. B ladder control: M ethods of controlling or managing leakage of urine discussed. E xercise: Patient advised to start, increase or maintain level of exercise/physical activity. I njury prevention: F all prevention discussed. Discussed need for cane/walker. Potential trip hazards discussed. Immunizations: P neumococcal r ecommended. I nfluenza u p to date. Screening / Special Tests: M ammogram R ecent history: 11/26/2023, negative.?Colonoscopy R ecent history: 01/22/2016, recommended. B one mineral Density R ecent history: 01/19/2024 , osteopenia. D iabetic Retinal Eye Exam R ecent history:, recommended today.?Nephrology History R ecent history: urine M/A ordered today. * Follow Up: 6 Months * Images: Billing Information: * Visit Code: 11612 Office Visit, Est Pt., Level 3. Modifiers: 25 * Procedure Codes: G0439 ANNUAL WELLNESS VST; PPS SUBSQT VST. G2211 Complex e/m visit add on. G0444 ANNUAL DEPRESSION SCREENING 15 MIN. 1090F PRES/ABSN URINE INCON ASSESS. 3288F FALL RISK ASSESSMENT DOCD. 1170F FXNL STATUS ASSESSED. 1159F MED LIST DOCD IN RCRD. 1003F LEVEL OF ACTIVITY ASSESS. 1036F TOBACCO NON-USER. 79289 GLYCATED HEMOGLOBIN TEST. Modifiers: QW 97721 CBC WITH AUTO DIFF. 1125F AMNT PAIN NOTED PAIN PRSNT. 3044F HG A1C LEVEL LT 7.0%. G8752 MOST RECENT SYSTOLIC BP < 140MM HG. G8754 MOST RECENT DIASTOLIC BP < 90MM HG. G8510 NEG SCR Depression PT NOT ELIG F/U/PLN DOC. 4040F PNEUMOC IMM ORDER/ADMIN. * Electronic signature of Oscar Lara MD on 02/09/2025 at 04:35 PM EDT Sign off status: Pending * Provider: Oscar Lara M.D. Date: 0 07/12/2024 Generated for Sidney patino/Myles/Flakitaitting on: 0 02/09/2025 04:35 PM EDT History and Physical Notes * HPI (History of Present Illness) Category Sub-Category Detail Notes Category Not es HPI Patient is here today for a [facility] duled 6 month check up and a Medicare Annual Wellness Visit. Pt sts she is doing and has no new concerns or complaints at this time. Pt sts she is fasting today Physical Examination Category Sub-Category Detail Notes Section Note s GENERAL Pain Assessment: Pain level: 2, on a scale of 0-10 (with 10 being extreme pain) Functional Status Assessment: Patient response to question of how often physical health interferes with daily activities: . Almost never Able to perform ADLs-including meal preparation, grocery shopping, housework, laundry, taking medications or handling finances. Cognitive Status: alert and oriented. Ambulation Status: Fully ambulatory Fall Risk Assessment: Independant in amb ulation, adequate lighting in home. Patient has NOT fallen or had trouble walking within the past 12 months Depression Screening: Denies depressed m ood or anxiety. Describes emotional health as: calm Bladder Control Screening: Denies proble ms Examination Category Sub-Category Detail Notes Category Not es General Examination Heart: RSR Lungs: clear to auscultatio n Abdomen: obese, soft, +BS, no masses or tenderness Extremities: no leg edema General Appearance: NAD. Neck: supple, no lymphaden opathy, no thyromegaly Back: thoracic kyphosis
--- OUTSIDE RECORDS SUMMARY | 2025-01-10 05:15 | XMS_ITS ---
Author Organization [facility] Address [address] [place] [phone] Care Team Providers Care Search Strategist Name Role Phone Oscar Lara Primary Care Provider Allergies Allergen (clinical drug ingredient) Drug/Non Drug Allergy documented on EMR Reaction Allergy Type Onset Date Status Non-steroidal anti-inflammatory agent (FN) NSAIDs Hx of peptic ulcers Drug Allergy Active Results Component Value Reference Range Notes Glycohemoglobin A1c (in hous e) Reviewed date:01/12/2025 10:55:07 PM Interpretation:6.8% Performing Lab: Notes/Report: 6.8% glycohemoglobin 6.8% 5 - 6.5 % P-Comprehensive Metabolic Pa yeyo (CMP) Reviewed date:01/12/2025 10:55:07 PM Interpretation: Performing Lab: Notes/Report: CLIA: [id number] Colton Kennedy MD, [employer] [address] [facility] , [address], [place] [address] Test performed by [employer], [facility] Sodium 148 135-145 mmol/L Potassium 4.5 3.5-5.3 mmol/L Chloride 104 97-108 mmol/L CO2 28 20-32 mmol/L Glucose 151 65-99 mg/dL BUN 13 8-23 mg/dL Creatinine 0.80 0.50-1.00 mg/dL Calcium 9.9 8.6-10.4 mg/dL eGFR by Creatinine 75 >59 mL/min/1.73m2 Protein 6.6 6.0-8.3 g/dL Albumin 4.4 3.5-5.3 g/dL Alkaline Phosphatase 72 35-121 IU/L ALT (SGPT) 27 <5-47 IU/L AST (SGOT) 22 <5-40 IU/L Bilirubin, Total 0.5 <0.2-1.2 mg/dL A/G Ratio 2.0 1.1-2.5 P-Lipid Panel Reviewed date:01/12/2025 10:55:07 PM Interpretation:LDL 82 Performing Lab: Notes/Report: Test performed by [facility] [address] [place] [address] , [address], [place] [address] Colton Kennedy MD, [employer] CLIA: [id number] Cholesterol 171 <200 mg/dL Triglycerides 208 <150 mg/dL HDL Cholesterol 47 >39 mg/dL Cholesterol / HDL Ratio 3.64 0.00-4.44 Ratio Non-HDL Cholesterol 124 <130 mg/dL LDL Cholesterol (Calculation) 82 <130 mg/dL LDL Cholesterol Levels* Less than 100 mg/dL Optimal 100 to 129 mg/dL Near Optimal/ Above Optimal 130 to 159 mg/dL Borderline High 160 to 189 mg/dL High 190 mg/dL and above Very High * Categories as recommended by the 2004 ATPIII guidelines LDL/HDL Ratio 1.8 <3.3 Ratio LDL Cholesterol Patient History Test Date: 07/09/2023 LDL Results: 83 Units: mg/dL % Change: +6% Test Date: 01/07/2024 LDL Results: 88 Units: mg/dL % Change: +6% Test Date: 01/10/2025 LDL Results: 82 Units: mg/dL % Change: -6% P-TSH Reviewed date:01/12/2025 10:55:07 PM Interpretation:0.75 Performing Lab: Notes/Report: Test performed by [facility] [address] [place] [address] , [address], [place] [address] Colton Kennedy MD, [employer] CLIA: [id number] TSH 0.75 0.43-5.25 mU/L REASON FOR VISIT 6 month check, Needs labs, bone density screening, & diabetic eye exam Medications Medication SIG (Take, Route, Frequency, Duration) Notes Start Date End Date Status Pantoprazole Sodium 40 MG 1 tablet 1/2 t o 1 hour before morning meal Orally Once a day; Duration: 90 days Active Glimepiride 1 MG 1 tablet with breakf ast or the first main meal of the day Orally Once a day; Duration: 90 days Active Levothyroxine Sodium 112 MCG 1 tablet in the morning on an empty stomach Orally Once a day; Duration: 90 days Active metFORMIN HCl 850 MG 1 tab(s) orally one a day Active Levothyroxine Sodium 112 MCG TAKE 1 TABLET EVERY DAY Active Lisinopril-hydroCHLOROthiazi de 20-12.5 MG 1 tab(s) orally once a day Active Simvastatin 40 MG TAKE 1 TABLET AT BEDTIME Active Simvastatin 40 MG 1 tablet in the even ing Orally Once a day; Duration: 90 days Active metFORMIN HCl ER (MOD) 1000 MG 2 tablet with evening meal Orally Once a day; Duration: 90 days Active CareTouch CPAP & BIPAP Hose 1 DIRECTED Active Lisinopril-hydroCHLOROthiazi de 20-12.5 MG TAKE 1 TABLET EVERY DAY; Duration: 90 Active CPAP Supplies - as directed as directed 11/14/2024 Active Pantoprazole Sodium 40 MG TAKE 1 TABLET EVERY DAY Active Farxiga 10 MG 1 tablet Orally Once a day; Duration: 30 days 01/10/2025 Active Problems Problem Type SNOMED Code ICD Code Onset Dates Problem Status W/U Status Risk Notes Problem Type 2 diabetes mellitus with other specified complication, unspecified whether residential insulin use (E11.69) Active confirmed Problem Morbid obesity (612779433) Morbid obesity (E66.01) Active confirmed Vital Signs Blood pressure systolic 126 mm Hg 01/11/20 25 Blood pressure diastolic 82 mm Hg 025 Heart Rate 95 /min 01/10/2025 Height 65 in 01/10/2025 Weight 240.0 lbs 01/10/2025 BMI 39.93 kg/m2 01/10/2025 Encounters Encounter [facility] Date [facility] [address] [facility] [address] [place] [phone] 01/10/2025 Oscar Lara Adult general medica l examination [...] M85.80 ; KEYON (obstructive sleep apnea) G47.33 ; Hx of peptic ulcer Z87.11 ; Type 2 diabetes mellitus with other specified complication, unspecified whether residential insulin use E11.69 and Morbid obesity E66.01 Assessments Encounter Date Diagnosis (ICD Code) Assessment Notes Treatment Notes Treatment Clinical Notes Section Notes 01/10/2025 Adult general medical examination (ICD-10 - Z00.00) Patient instructed to return to office Annually for Annual Wellness Visits to include annual screenings of Pain assessment, Functional Ability assessment, Cognitive Ability assessment, Fall Risk assessment, Depression screening and Bladder control screening. 01/10/2025 Type 2 diabetes mellitus without complication, without long-term current use of insulin (ICD-10 - E11.9) 01/10/2025 Acquired hypothyroidism (ICD-10 - E03.9) 01/10/2025 Mixed hyperlipidemia (ICD-10 - E78.2) 01/10/2025 HTN (hypertension) (ICD-10 - I10) 01/10/2025 Vitamin D deficiency (ICD-10 - E55.9) 01/10/2025 Gastroesophageal reflux disease without esophagitis (ICD-10 - K21.9) 01/10/2025 Postmenopausal (ICD-10 - Z78.0) 01/10/2025 BMI 39.0-39.9,adult (ICD-10 - Z68.39) 01/10/2025 Abdominal aortic aneurysm (AAA) without rupture, unspecified part (ICD-10 - I71.40) 01/10/2025 Osteopenia (ICD-10 - M85.80) 01/10/2025 KEYON (obstructive sleep apnea) (ICD-10 - G47.33) 01/10/2025 Hx of peptic ulcer (ICD-10 - Z87.11) 01/10/2025 Type 2 diabetes mellitus with other specified complication, unspecified whether residential insulin use (ICD-10 - E11.69) 01/10/2025 Morbid obesity (ICD-10 - E66.01) Plan Of Treatment Medication Medication Name Sig Start Date Stop Date Notes metFORMIN HCl 850 MG 1 tab(s) orally one a day Glimepiride 1 MG 1 tablet with breakf ast or the first main meal of the day Orally Once a day Levothyroxine Sodium 112 MCG TAKE 1 TABLET EVERY DAY Lisinopril-hydroCHLOROthiazi de 20-12.5 MG 1 tab(s) orally once a day Simvastatin 40 MG TAKE 1 TABLET AT BEDTIME Pantoprazole Sodium 40 MG TAKE 1 TABLET EVERY DAY Farxiga 10 MG 1 tablet Orally Once a day; Duration: 30 days 01/10/2025 Treatment Notes Assessment Notes Adult general medical examination Patien t instructed to return to office Annually for Annual Wellness Visits to include annual screenings of Pain assessment, Functional Ability assessment, Cognitive Ability assessment, Fall Risk assessment, Depression screening and Bladder control screening. Next Appt Details Follow Up: 6 Months, Reason: Provider Name:Oscar Myers miya, 07/13/2025 09:00:00 AM, [address], [address], [place], [phone], Progress Notes * Jarrett STERNaDOB:1945 (79 yo F)Acc No.[id number]:01/10/2025 Progress Notes Patient: Estella CASTANEDA Provider: Oscar Lara M.D. :1945 A ge:79 Y S ex:Female Date:01/10/2025 Address:[address] [place] [address] [facility], [phone] Subjective: * Chief Complaints: * 1 . 6 month check. 2. Needs labs, bone density screening, & diabetic eye exam. * HPI: E ndocrinology: Pt presents today for a 6 month check up. Pt is fasting today. She continues to be compliant with diet and medication. She, however thinks the glimepiride is causing diarrhea. She takes this in the morning and takes metformin at night. Loose stools only occur during the day. Denies cramping. No blood in stool. * ROS: D ERMATOLOGY: no R ansley. n o H mark. G ASTROENTEROLOGY: no N ausea. n o V omiting. n o D iarrhea.? U ROLOGY: no D ifficulty urinating. n o B lood in urine. * Medical History: G raves disease, Hypertension, [...] gallbladder removed 01/24, cataract surgery both eyes 07/02 07/30, EGD 2016, Colonoscopy 2016, hammer toe and bunion removal of right foot-Dr Rodriguez 02/23/2019. * Hospitalization/Major Diagno stic Procedure: s ee above , [facility]-anemia 12/01/10, H-peptic ulcer, GI bleed 04/28 to 05/01/14, [facility]-abdominal pain 09/12/14. * Family History: [...] detector use: yes. Marital Status: Single. Occupation: [employer] in [place]. Past smoking status: no, Smoking status: Does not smoke. Alcohol: No. * Medications: T mistyg CareTouch CPAP & BIPAP Hose MACHINE AND SUPPLIES 1 DIRECTED , Taking Lisinopril-hydroCHLOROthiazide 20-12.5 MG Tablet TAKE 1 TABLET EVERY DAY , Taking CPAP Supplies - - as directed as directed , Taking Simvastatin 40 MG Tablet 1 tablet in the evening Orally Once a day , Taking metFORMIN HCl ER (MOD) 1000 MG Tablet Extended Release 24 Hour 2 tablet with evening meal Orally Once a day , Taking Pantoprazole Sodium 40 MG Tablet Delayed Release 1 tablet 1/2 to 1 hour before morning meal Orally Once a day , Taking Glimepiride 1 MG Tablet 1 tablet with breakfast or the first main meal of the day Orally Once a day , Taking Levothyroxine Sodium 112 MCG Tablet 1 tablet in the morning on an empty stomach Orally Once a day , Discontinued metFORMIN HCl 850 MG Tablet 1 tab(s) orally one a day , Medication List reviewed and reconciled with the patient * Allergies: N SAIDs: Hx of peptic ulcers - Contraindication. Objective: * Vitals: W t: 240.0, Temp: 98.3, BP: 126/82, HR: 95, O2 Sat: 95% RA, Nurse: ANSLEY, Ht: 65, BMI:39.93. * Examination: G eneral Examination: General Appearance: N AD.. N simi: s upple, no lymphadenopathy, no thyromegaly. H eart: R SR. L ungs: c lear to auscultation. A bdomen: obese, soft, +BS, no masses or tenderness. B ack: thoracic kyphosis. E xtremities: n o leg edema. Assessment: * Assessment: 1. A dult general [...] P ostmenopausal - Z78.0 9 . B AR 39.0-39.9,adult - Z68.39 10. A bdominal aortic aneurysm (AAA) without rupture, unspecified part - I71.40 ?11. O steopenia - M85.80 1 2. O SA (obstructive sleep apnea) - G47.33? 13. H x of peptic ulcer - Z87.11 1 4. 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 M orbid obesity - E66.01 Plan: * Treatment: 2. T ype 2 diabetes mellitus without complication, without long-term current use of insulin Continue metFORMIN HCl Tablet, 850 MG, 1 tab(s), orally, one a day; S top Glimepiride Tablet, 1 MG, 1 tablet with breakfast or the first main meal of the day, Orally, Once a day; S tart Farxiga Tablet, 10 MG, 1 tablet, Orally, Once a day, 30 days, 30, Refills 5. 3. A cquired hypothyroidism Continue Levothyroxine Sodium Tablet, 112 MCG, TAKE 1 TABLET EVERY DAY. L AB: P-TSH (Collection Date & Time - 01/10/2025 08:50 AM) 0 .75 Value Reference Range T SH 0.75 0.43-5.25 - mU/L * Oscar Lara 01/12/2025 10:54:56 PM EDT > See phone encounter 4.?Mixed hyperlipidemia? Continue Simvastatin Tablet, 40 MG, TAKE 1 TABLET AT BEDTIME.?LAB: P-Lipid Panel (Collection Date & Time - 01/10/2025 08:50 AM)?LDL 82* Value Reference Range C holesterol / HDL Ratio 3.64 0.00-4.44 - Ratio * C holesterol 171 <200 - mg/dL * H DL Cholesterol 47 >39 - mg/dL * L DL Cholesterol (Calculation) 82 <130 - mg/d L * L DL/HDL Ratio 1.8 <3.3 - Ratio * N on-HDL Cholesterol 124 <130 - mg/dL * T riglycerides 208 H <150 - mg/dL * Oscar Lara 01/12/2025 10:54:56 PM EDT > See phone encounter 5.?HTN (hypertension)? Continue Lisinopril-hydroCHLOROthiazide Tablet, 20-12.5 MG, 1 tab(s), orally, once a day.?LAB: P-Comprehensive Metabolic Panel (CMP) (Collection Date & Time - 01/10/2025 08:50 AM)* Value Reference Range A /G Ratio 2.0 1.1-2.5 - * A lbumin 4.4 3.5-5.3 - g/dL * A lkaline Phosphatase 72 35-121 - IU/L * A LT (SGPT) 27 <5-47 - IU/L * A ST (SGOT) 22 <5-40 - IU/L * B ilirubin, Total 0.5 <0.2-1.2 - mg/dL * B UN 13 8-23 - mg/dL * C alcium 9.9 8.6-10.4 - mg/dL * C hloride 104 97-108 - mmol/L * C O2 28 20-32 - mmol/L * C reatinine 0.80 0.50-1.00 - mg/dL * G lucose 151 H 65-99 - mg/dL * P otassium 4.5 3.5-5.3 - mmol/L * S odium 148 H 135-145 - mmol/L * P rotein 6.6 6.0-8.3 - g/dL * e GFR by Creatinine 75 >59 - mL/min/1.73m2 * Oscar Lara 01/12/2025 10:54:56 PM EDT > See phone encounter 6.?Gastroesophageal reflux disease without esophagitis? Continue Pantoprazole Sodium Tablet Delayed Release, 40 MG, TAKE 1 TABLET EVERY DAY.?? * Labs: * L ab: Glycohemoglobin A1c (in house) (Collection Date & Time - 01/10/2025) 6 .8% Value Reference Range g lycohemoglobin 6.8% 5 - 6.5 % * Brittny Adrienne 01/10/2025 1 1:19:18 AM EDT > Provider reviewed results while patient in office. Oscar Lara 01/12/2025 10:54:56 PM EDT > See phone encounter * Procedure Codes: G 2211 Complex e/[place], [address] GLYCATED HEMOGLOBIN TEST, Modifiers: QW , 3044F HG A1C LEVEL LT 7.0%, 1036F TOBACCO NON-USER, G8950 PREHTN/HTN BP DOC INDCD F/U DOC, G8752 MOST RECENT SYSTOLIC BP < 140MM HG, G8754 MOST RECENT DIASTOLIC BP < 90MM HG * Follow Up: 6 Months * Images: Drawin01/10/25 [facility] Billing Information: * Visit Code: 16674 Office Visit, Est Pt., Level 4. * Procedure Codes: G2211 Complex e/[place]. [address] GLYCATED HEMOGLOBIN TEST. Modifiers: QW 3044F HG A1C LEVEL LT 7.0%. 1036F TOBACCO NON-USER. G8950 PREHTN/HTN BP DOC INDCD F/U DOC. G8752 MOST RECENT SYSTOLIC BP < 140MM HG. G8754 MOST RECENT DIASTOLIC BP < 90MM HG. * Electronic signature of Oscar Lara MD on 02/09/2025 at 04:36 PM EDT Sign off status: Pending * Provider: Oscar Lara M.D. Date: 0 01/10/2025 Generated for Sidney patino/Fagrazyna/eTransmitting on: 0 02/09/2025 04:36 PM EDT History and Physical Notes * Examination Category Sub-Category Detail Notes Category Not es General Examination Heart: RSR Lungs: clear to auscultatio n Abdomen: obese, soft, +BS, no masses or tenderness Extremities: no leg edema General Appearance: NAD. Neck: supple, no lymphaden opathy, no thyromegaly Back: thoracic kyphosis
--- OUTSIDE RECORDS SUMMARY | 2025-02-09 16:36 | XMS_ITS ---
Author Organization Unknown Results OrderDate OrderTestName ResultName ResultDate Value Units Range AbnormalFlag ResultStatus ObservationNotes TestCode ResultCode DateRecorded AccessionNumber DiagnosticSectionCode DiagnosticSectionName Sequence Interpretation Cust om 07/12/2024 00:00:00 P-Vitamin D 25-Hydroxy Vitamin D 25-Hydroxy 6099-38-05Y61:00:00 22.3 ng/mL 30.0-100.0 - ng/mL L Reviewed Oscar Lara 07/14/2024 8:39:59 AM > See phone encounter P-Vitamin D 25-Hydroxy Coding Vitamin D 25-Hydroxy 07/12/2024 00:00: 00:00:00P-Microalbumin/Creatinine, Random Urine SampleMicroalbumin, Urine, [id number]:00:000.5mg/dL- mg/dLReviewed Oscar Lara 07/14/2024 8:39:59 AM > See phone encounter Coding P-Microalbumin/Creatinine, R andom Urine Sample Coding Microalbumin, Urine, Random 07/12/2024 00:00: 00:00:00P-Microalbumin/Creatinine, Random Urine SampleCreatinine, [id number]:00:0099.2mg/dL- mg/dLReOscar Lang 07/14/2024 8:39:59 AM > See phone encounter Coding P-Microalbumin/Creatinine, R andom Urine Sample Coding Creatinine, Urine 07/12/2024 00:00: 00:00:00P-Microalbumin/Creatinine, Random Urine SampleAlbumin/Creatinine Ratio, Vuywt9862-84-45B84:00:005ug/mg0-30 - ug/mg Oscar Castillo 07/14/2024 8:39:59 AM > See phone encounter Coding P-Microalbumin/Creatinine, R andom Urine Sample Coding Albumin/Creatinine Ratio, Ur ine 07/12/2024 00:00: 00:00:24T-[id number]:00:000.90mU/L0.43- 5.25 - mU/LReviewedNorfleet,Oscar Farnsworth 07/14/2024 8:39:59 AM > See phone encounter Coding P-TSH Coding TSH 07/12/2024 00:00: 00:00:00P-Comprehensive Metabolic Panel (CMP) Nhrilwv3138-28-02W68:00:006.8g/dL6.0-8.3 - g/dLReviewedNjorge aetOscar 07/14/2024 8:39:59 AM > See phone encounter Coding P-Comprehensive Metabolic Pa yeyo (CMP) Coding Protein 07/12/2024 00:00: 00:00:00P-Comprehensive Metabolic Panel (CMP) Edhuue9869-40-87L05:00:74414lprt/T071-184 - mmol/LReviewedNorfleet,Oscar Farnsworth 07/14/2024 8:39:59 AM > See phone encounter Coding P-Comprehensive Metabolic Pa yeyo (CMP) Coding Sodium 07/12/2024 00:00: 00:00:00P-Comprehensive Metabolic Panel (CMP) Bmraxcerb4115-12-24E33:00:004.6mmol/L3.5-5.3 - mmol/LReviewedNorfleetOscar 07/14/2024 8:39:59 AM > See phone encounter Coding P-Comprehensive Metabolic Pa yeyo (CMP) Coding Potassium 07/12/2024 00:00: 00:00:00P-Comprehensive Metabolic Panel (CMP) Mxszobq7419-94-68R73:00:77650rc/dL65-99 - mg/dLHReviewedNorfleetOscar 07/14/2024 8:39:59 AM > See phone encounter Coding P-Comprehensive Metabolic Pa yeyo (CMP) Coding Glucose 07/12/2024 00:00: 00:00:00P-Comprehensive Metabolic Panel (CMP) Pfpukjwsjj4003-00-25T91:00:000.77mg/dL0.50-1.00 - mg/dLOscar Castillo 07/14/2024 8:39:59 AM > See phone encounter Coding P-Comprehensive Metabolic Pa yeyo (CMP) Coding Creatinine 07/12/2024 00:00: 00:00:00P-Comprehensive Metabolic Panel (CMP)CO2 7951-32-98J92:00:0027mmol/L22-32 - mmol/LRevOscar García 07/14/2024 8:39:59 AM > See phone encounter Coding P-Comprehensive Metabolic Pa yeyo (CMP) Coding CO2 07/12/2024 00:00: 00:00:00P-Comprehensive Metabolic Panel (CMP) Iuuvkruh6055-48-53V05:00:12754xjuu/L97-108 - mmol/Oscar Garcia 07/14/2024 8:39:59 AM > See phone encounter Coding P-Comprehensive Metabolic Pa yeyo (CMP) Coding Chloride 07/12/2024 00:00: 00:00:00P-Comprehensive Metabolic Panel (CMP) Dkfnlyn6677-45-31P54:00:0010.2mg/dL8.6-10.4 - mg/dLOscar Castillo 07/14/2024 8:39:59 AM > See phone encounter Coding P-Comprehensive Metabolic Pa yeyo (CMP) Coding Calcium 07/12/2024 00:00: 00:00:00P-Comprehensive Metabolic Panel (CMP)BUN 0983-03-16R57:00:0016mg/dL8-23 - mg/dLOscar Castillo 07/14/2024 8:39:59 AM > See phone encounter Coding P-Comprehensive Metabolic Pa yeyo (CMP) Coding BUN 07/12/2024 00:00: 00:00:00P-Comprehensive Metabolic Panel (CMP) Bilirubin, Lkxwh3963-77-71X49:00:000.4mg/dL<0.2-1.2 - mg/dLSadiorfleetOscar 07/14/2024 8:39:59 AM > See phone encounter Coding P-Comprehensive Metabolic Pa yeyo (CMP) Coding Bilirubin, Total 07/12/2024 00:00: 00:00:00P-Comprehensive Metabolic Panel (CMP)AST (SGOT)2156-64-65H49:00:0020IU/L<5-40 - IU/LReviewedNorfleet,Oscar Farnsworth 07/14/2024 8:39:59 AM > See phone encounter Coding P-Comprehensive Metabolic Pa yeyo (CMP) Coding AST (SGOT) 07/12/2024 00:00: 00:00:00P-Comprehensive Metabolic Panel (CMP)ALT (SGPT)0813-23-79K27:00:0021IU/L<5-47 - IU/LReviewedNorfleetOscar 07/14/2024 8:39:59 AM > See phone encounter Coding P-Comprehensive Metabolic Pa yeyo (CMP) Coding ALT (SGPT) 07/12/2024 00:00: 00:00:00P-Comprehensive Metabolic Panel (CMP) Alkaline Nniutilqbpb6896-72-98Y23:00:0076IU/L35-121 - IU/LReviewedNorfleetOscar 07/14/2024 8:39:59 AM > See phone encounter Coding P-Comprehensive Metabolic Pa yeyo (CMP) Coding Alkaline Phosphatase 07/12/2024 00:00: 00:00:00P-Comprehensive Metabolic Panel (CMP) Dxvceaq2253-90-06Y89:00:004.3g/dL3.5-5.3 - g/dLOscar Castillo 07/14/2024 8:39:59 AM > See phone encounter Coding P-Comprehensive Metabolic Pa yeyo (CMP) Coding Albumin 07/12/2024 00:00: 00:00:00P-Comprehensive Metabolic Panel (CMP)A/G Svtcv3680-90-00U96:00:001.71.1-2.5 -ReviewedNorfleet,R Javad 07/14/2024 8:39:59 AM > See phone encounter Coding P-Comprehensive Metabolic Pa yeyo (CMP) Coding A/G Ratio 07/12/2024 00:00: 00:00:00Glycohemoglobin A1c (in house) wixlpjhmhmgtstl9423-34-63O21:00:006.4%%5 - 6.5 %Shyanne Purvis 07/12/2024 10:04:07 AM > Oscar Lara 07/14/2024 8:39:59 AM > See phone encounter Coding Glycohemoglobin A1c (in hous e) Coding glycohemoglobin 07/12/2024 00:00:00001/10/2025 00:00:00Glycohemoglobin A1c (in house) lrguinabgzvnurs4447-81-20E01:00:006.8%%5 - 6.5 %Adrienne Cotto 01/10/2025 11:19:18 AM EDT > Provider reviewed results while patient in office. Coding Glycohemoglobin A1c (in hous e) Coding glycohemoglobin 01/10/2025 00:00:00
--- OUTSIDE RECORDS SUMMARY | 2025-02-09 16:37 | XMS_ITS | Patient Health Record ---
Author Organization [facility] Address [address] [place] [id number] Care Team Providers Care Nephrologist Name Role Phone Oscar Lara Primary Care Provider [phone] Allergies Allergen (clinical drug ingredient) Drug/Non Drug [...] Interpretation: Performing Lab: Notes/Report: Test performed by [employer] [facility] [facility] , [address], [place] [address] Colton Kennedy MD, [employer] CLIA: [id number] Sodium 142 135-145 mmol/L Potassium 4.6 3.5-5.3 [...] Interpretation: Performing Lab: Notes/Report: Test performed by [employer] [address] [place] [address] , [place] [address] Colton Kennedy MD, [employer] CLIA: [id number] TSH 0.90 0.43-5.25 mU/L P-Microalbumin/Creatinine, R andom Urine Sample Reviewed date:07/14/2024 08:40:13 AM Interpretation: Performing Lab: Notes/Report: Test performed by [employer] [address] [place] [address] , [address], [place] [id number] Colton Kennedy MD, [employer] CLIA: [id number] Albumin/Creatinine Ratio, Urine 5 0-30 ug/m g Microalbumin, Urine, Random 0.5 Creatinine, Urine 99.2 P-Vitamin D 25-Hydroxy Reviewed date:07/14/2024 08:40:13 AM Interpretation: Performing Lab: Notes/Report: Test performed by [employer] [employer] [address] [place] [address] , [address], [place] [address] Colton Kennedy MD, [employer] CLIA: [id number] Vitamin D 25-Hydroxy 22.3 30.0-100.0 ng/mL Interpretation [...] AAA increased in size to 3.1 cm Glycohemoglobin A1c (in hous e) Reviewed date:01/12/2025 10:55:07 PM Interpretation:6.8% Performing Lab: Notes/Report: 6.8% glycohemoglobin 6.8% 5 - 6.5 % P-Comprehensive Metabolic Pa yeyo (CMP) Reviewed date:01/12/2025 10:55:07 PM Interpretation: Performing Lab: Notes/Report: Test performed by [employer] [address] [place] [address] , [address], [place] [address] Colton Kennedy MD, [employer] CLIA: [id number] Sodium 148 135-145 mmol/L Potassium 4.5 3.5-5.3 [...] 82 Performing Lab: Notes/Report: Test performed by [employer] [address] [place] [address] , [address], [place] [address] Colton Kennedy MD, [employer] CLIA: [id number] Cholesterol 171 <200 mg/dL Triglycerides 208 <150 [...] Interpretation:0.75 Performing Lab: Notes/Report: Test performed by [employer] [employer] [address] [facility] , [address], [place] [address] Colton Kennedy MD, [employer] CLIA: [id number] TSH 0.75 0.43-5.25 mU/L Reason For Referral No Information Medications Medication SIG (Take, Route, Frequency, Duration) Notes Start Date End Date Status Levothyroxine Sodium 112 MCG TAKE 1 TABLET EVERY DAY Active Lisinopril-hydroCHLOROthiazi de 20-12.5 MG 1 tab(s) orally once a day Active Simvastatin 40 MG TAKE 1 TABLET AT BEDTIME Active metFORMIN HCl 850 MG 1 tab(s) orally one a day Active CareTouch CPAP & BIPAP Hose 1 DIRECTED Active Lisinopril-hydroCHLOROthiazi de 20-12.5 MG TAKE 1 TABLET EVERY DAY; Duration: 90 Active CPAP Supplies - as directed as directed 11/14/2024 Active glipiZIDE ER 5 MG 1 tablet with food Orally Once a day; Duration: 30 days 01/17/2025 Active Simvastatin 40 MG 1 tablet in the even ing Orally Once a day; Duration: 90 days Active metFORMIN HCl ER (MOD) 1000 MG 2 tablet with evening meal Orally Once a day; Duration: 90 days Active Pantoprazole Sodium 40 MG TAKE 1 TABLET EVERY DAY Active Pantoprazole Sodium 40 MG 1 tablet 1/2 [...] Once a day; Duration: 90 days Active Immunizations Vaccine Route Administration Date Status Comme nts xFluzone High Dose-private (65yr&older) Unknown 04/11/2024 Administered xFlu shot-36 months and older IM Intramuscular 05/26/2008 Administered xFlu shot-36 months and older IM Intramuscular 02/12/2009 Administered xFlu shot-36 months and older IM Intramuscular 01/24/2010 Administered Tetanus Tdap-Adacel (over 7yrs) IM Intramuscular 11/26/2013 Administered Prevnar (PCV20) IM Intramuscular 07/12/2024 Administered Prevnar (PCV13) IM Intramuscular 06/19/2015 Administered PNEUMOVAX 23 VACCINE IM Intramuscular 12/23/2016 Administe red Hepatitis A (adult) Unknown 11/04/2017 Administered Fluzone High Dose (65yr and older) Unknown 02/22/2016 Administered Fluzone High Dose (65yr and older) Unknown 03/23/2017 Administered Fluzone High Dose (65yr and older) IM Intramuscular 03/20/2018 Administered Fluzone High Dose (65yr and older) IM Intramuscular 02/16/2019 Administered Fluzone High Dose (65yr and older) Unknown 03/15/2020 Administered Fluzone High Dose (65yr and older) Unknown 05/14/2021 Administered Fluzone High Dose (65yr and older) Unknown 03/07/2022 Administered Fluzone High Dose (65yr and older) Unknown 02/17/2023 Administered COVID 19 Pfizer Unknown 05/17/2020 Administered COVID 19 Pfizer Unknown 06/07/2020 Administered COVID 19 Pfizer Unknown 02/14/2021 Administered COVID 19 Moderna Unknown 12/06/2021 Administered Problems Problem Type SNOMED Code ICD Code Onset Dates Problem Status W/U Status Risk Notes Problem Hypertension (27997543) HTN (hypertension) (I10) Active confirmed Problem Vitamin D deficiency (04683222) Vitamin D deficiency (E55.9) Active confirmed Problem Morbid obesity (238179401) Morbid obesity (E66.01) Active confirmed Problem Osteopenia (919390089) Osteopenia (M85.80) Active confirmed Problem Iron deficiency anemia (67997181) Iron deficiency anemia (D50.9) Active confirmed Problem Primary generalised osteoarthritis (127107383) 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) Active confirmed Problem Mixed hyperlipidemia (353560900) Mixed hyperlipidemia (E78.2) Active confirmed Problem Female urinary stress incontinence (82294175) MALCOM (stress urinary incontinence, female) (N39.3) Active confirmed Problem Gastroesophageal reflux disease without esophagitis (800543820) Gastroesophageal reflux disease without esophagitis (K21.9) Active confirmed Problem Acquired hypothyroidism (103135164) Acquired hypothyroidism (E03.9) Active confirmed Problem Obstructive sleep apnea syndrome (33090813) KEYON (obstructive sleep apnea) (G47.33) Active confirmed Problem Osteoarthritis of knee (823727914) Primary osteoarthritis of right knee (M17.11) Active confirmed Problem Osteoarthritis of knee (243932524) Primary osteoarthritis of left knee (M17.12) Active confirmed Problem History of peptic ulcer (186490595) Hx of peptic ulcer (Z87.11) Active confirmed Problem Body mass index 40+ - severely obese (978817128) Body mass index (BMI) of 40.1 to 44.9 in adult (Z68.41) Active confirmed Problem Type II diabetes mellitus without complication (525763866) Type 2 diabetes mellitus without complication, without long-term current use of insulin (E11.9) Active confirmed Problem mammogram - screening (53078749) Screening mammogram, encounter for (Z12.31) Active confirmed Problem Obese class II (250251832930707) BMI 39.0-39.9,adult (Z68.39) Active confirmed Problem Type 2 diabetes mellitus with other specified complication, unspecified whether longterm insulin use (E11.69) Active confirmed Problem Acquired hammer toe of right foot (9526198286187949) Hammertoe of right foot (M20.41) Active confirmed Problem Abdominal aortic aneurysm without rupture (disorder) (87181762) Abdominal aortic aneurysm (AAA) without rupture, unspecified part (I71.40) Active confirmed Problem History of osteopenia (633014155) History of osteopenia (Z87.39) Active confirmed Vital Signs Heart Rate 95 /min 01/10/2025 Blood pressure diastolic 82 mm Hg 01/10/2025 Height 65 in 01/10/2025 Blood pressure systolic 126 mm Hg 01/10/2025 Weight 240.0 lbs 01/10/2025 BMI 39.93 kg/m2 01/10/2025 Encounters Encounter Location Date Provider Diagnosis [facility] [address] [facility] [address] [place], [place] [id number] 07/12/2024 Oscar Lara Adult general medica l [...] G47.33 and [facility] of [facility].11 [facility] [address] [facility] [address] [facility] [address] [place], [place] [phone] 01/10/2025 [facility] Adult general medica l examination Z00.00 ; [...] mellitus with other specified complication, unspecified whether authorization nurse insulin use E11.69 and Morbid obesity E66.01 [facility] [facility] [address] [place] [id number] 07/14/2024 R Javad Marco [facility] [address] [facility] [address] [place], [place] [id number] 07/26/2024 [facility] [address] [facility] [address] [place], [place] [phone] 11/14/2024 [facility] [address] [facility] [address] [place], [place] [id number] 01/[facility]20[facility] Type 2 diabetes leandra itus without complication, without long-term current use of insulin E11.9 Assessments Encounter Date Diagnosis (ICD Code) Assessment [...] use of insulin (ICD-10 - E11.9) 01/10/2025 Adult general medical examination (ICD-10 - Z00.00) Patient instructed to return to office Annually for Annual Wellness Visits to include annual screenings of Pain assessment, Functional Ability assessment, Cognitive Ability assessment, Fall Risk assessment, Depression screening and Bladder control screening. 01/10/2025 Type 2 diabetes mellitus without complication, without long-term current use of insulin (ICD-10 - E11.9) 01/12/2025 Type 2 diabetes mellitus without complication, without long-term current use of insulin (ICD-10 - E11.9) 01/10/2025 Acquired hypothyroidism (ICD-10 - E03.9) 07/12/2024 Acquired hypothyroidism (ICD-10 - E03.9) 07/12/2024 Mixed hyperlipidemia (ICD-10 - E78.2) 01/10/2025 Mixed hyperlipidemia (ICD-10 - E78.2) 07/12/2024 HTN (hypertension) (ICD-10 - I10) 01/10/2025 HTN (hypertension) (ICD-10 - I10) 01/10/2025 Vitamin D deficiency (ICD-10 - E55.9) 07/12/2024 Vitamin D deficiency (ICD-10 - E55.9) 07/12/2024 Gastroesophageal reflux disease without esophagitis (ICD-10 - K21.9) 01/10/2025 Gastroesophageal reflux disease without esophagitis (ICD-10 - K21.9) 01/10/2025 Postmenopausal (ICD-10 - Z78.0) 07/12/2024 Postmenopausal (ICD-10 - Z78.0) 07/12/2024 BMI 39.0-39.9,adult (ICD-10 - Z68.39) 01/10/2025 BMI 39.0-39.9,adult (ICD-10 - Z68.39) 01/10/2025 Abdominal aortic aneurysm (AAA) without rupture, unspecified part (ICD-10 - I71.40) 07/12/2024 Abdominal aortic aneurysm (AAA) without rupture, unspecified part (ICD-10 - I71.40) 07/12/2024 Osteopenia (ICD-10 - M85.80) 01/10/2025 Osteopenia (ICD-10 - M85.80) 01/10/2025 KEYON (obstructive sleep apnea) (ICD-10 - G47.33) 07/12/2024 KEYON (obstructive sleep apnea) (ICD-10 - G47.33) 07/12/2024 Hx of peptic ulcer (ICD-10 - Z87.11) 01/10/2025 Hx of peptic ulcer (ICD-10 - Z87.11) 01/10/2025 Type 2 diabetes mellitus with other specified complication, unspecified whether longterm insulin use (ICD-10 - E11.69) 01/10/2025 Morbid obesity (ICD-10 - E66.01) Plan Of Treatment Pending Test Test Name Order Date Mammogram 01/30/2025 Next Appt Details Provider Name:Oscar Saunders, 07/13/2025 09:00:00 AM, [address], [address], [place], [place], [id number], Insurance Providers Payer Name Payer Address Payer Phone Subscriber Number Group Number Insured Name Patient Relationship to Insured Coverage Start Date Coverage End Date [employer] (MEDICAR E) [address] [address] [place] [address] [id number] Estella Stern Self - patient is the insured Medical (General) History Medical History History ICD Code Graves disease hypertension Large hiatal hernia HLP dropped bladder Abdominal aortic aneurysm Cataracts Anemia GERD Solitary pulmonary nodule - stable by se rial CTs Iron deficiency Diverticulosis Peptic ulcer disease KEYON Right rotator cuff tear Type 2 DM Vitamin D deficiency Surgical History Surgery Date(Month/Year) hammer toe (LT.) vocal cord scrape 1981 tubal 1974 appendectomy 1968 tonsillectomy gallbladder removed 01/24 cataract surgery both eyes 07/02 07/30 EGD 2015 Colonoscopy 2016 hammer toe and bunion removal of right f oot-Dr Rodriguez 02/23/2019 Hospitalization History Reason Date(Month/Year) [facility] er-abdominal pain 09/12/14 [facility]-peptic ulcer, GI bleed 04/28 to 04/17 09/28 [facility]-anemia 12/01/10 see above
--- NOTE | 2025-02-09 16:38 | MM_ITS ---
PROCEDURE INFORMATION: Exam: MG Bilateral Screening 3D Mammography Exam date and time: 02/09/2025 4:38 PM Age: 79 years old Clinical indication: Screening examination TECHNIQUE: Imaging protocol: Bilateral Screening tomosynthesis and 2D mammography including computer-aided detection (CAD) when performed. COMPARISON: 1. MG MM DIG SCREENING MAMM BI W/CAD 11/26/2023 2:41 PM 2. MG MM DIG SCREENING MAMM BI W/CAD 08/14/2022 8:08 AM FINDINGS: MAMMOGRAPHY: Breast composition: There are scattered areas of fibroglandular density. Mass: None. Architectural distortion: None. Calcifications: No suspicious calcifications. Asymmetric density: None. Skin thickening: None. Axillary adenopathy: None. IMPRESSION: No mammographic evidence of malignancy. Annual screening is recommended unless otherwise clinically indicated. ASSESSMENT: BI-RADS Category 1: Negative.
== END 2025-02-09 23:59 | disposition home or self-care (01) ==
LOC: RAD 16:34
PROVIDERS: PCP Family Medicine; Visit Provider Family Medicine
DX: Z12.31 Encounter for screening mammogram for malignant neoplasm of breast (principal); R92.323 Mammographic fibroglandular density, bilateral breasts
CPT/HCPCS: 77063; 77067